=== PATIENT | female | born 1970 | race Caucasian/White ===

== ENCOUNTER 2022-10-01 11:59 | Observation (INO) ==
[2022-10-01] MEDS ORDERED: IOPAMIDOL 100 ML BOTTLE IV ONE (12:00)
[2022-10-01] MEDS ORDERED: ONDANSETRON 4 MG/2 ML VIAL IV ONE ×4 (12:48→18:27)
[2022-10-01] MEDS ORDERED: ONDANSETRON 4 MG/2 ML VIAL ONE (12:51)
[2022-10-01] MEDS ORDERED: LORazepam 2 MG/ML VIAL IV ONE (12:52)
--- NOTE | 2022-10-01 12:52 | Emergency Department Note ---
HPI General Chief complaint: Nausea/Vomiting/Diarrhea Stated complaint: flu Time Seen by Provider: 10/01/22 12:48 Source: patient Mode of arrival: wheelchair Limitations: no limitations History of Present Illness HPI Narrative: Narrative:This 52-year-old female presents with her who states that she has had approximately 24 hours of vomiting. He states "many" when asked how many times she has vomited. He denies seeing any hematemesis, and shes had one diarrhea stool. Patient has a past medical history of esophageal strictures, migraines, complex regional pain syndrome, common bile duct stricture, and is s/p cholecystectomy and DEBBIE. Her states that she "has no immune system". Related Data Home Medications Medication Instructions Recorded Confirmed lorazepam 1 mg tablet 1 mg PO QID anxiety 01/24/20 08/28/22 acyclovir 400 mg tablet 400 mg PO QDAY PRN 04/30/22 08/28/22 paroxetine HCl 40 mg tablet 40 mg PO QDAY 08/28/22 08/28/22 zolpidem 10 mg tablet 10 mg PO HS 08/28/22 08/28/22 Previous Rx's Medication Instructions Recorded febuxostat 80 mg tablet (Uloric) 80 mg PO QDAY #90 tabs 08/05/21 naloxone 4 mg/actuation nasal 4 mg intranasal Q2M PRN opioid 11/06/21 spray (Narcan) overdose #2 ea Magic Mouthwash 5 ml PO .q 4 hrs #180 mL 01/30/22 dicyclomine 10 mg capsule 10 mg PO TID IBS #90 caps 06/27/22 levocetirizine 5 mg tablet (Xyzal) 5 mg PO QPM PRN allergy symptoms 07/07/22 #30 tabs omeprazole 20 mg capsule,delayed 20 mg PO BID #60 caps 07/09/22 release ondansetron HCl 4 mg tablet See Rx Instructions PO .COMPLEX 07/09/22 Nausea/Vomiting #14 tabs azithromycin 250 mg tablet See Rx Instructions PO .COMPLEX #6 08/05/22 tabs tizanidine 4 mg tablet (Zanaflex) 4 mg PO QID #120 tabs 08/11/22 spironolactone 25 mg tablet See Rx Instructions .Route 08/22/22 .COMPLEX #60 tabs amoxicillin-potassium clavulanate 1 tab PO BID #20 tabs 08/25/22 1,000 mg-62.5 mg tablet,ext.rel 12hr (Augmentin XR) clonidine HCl 0.1 mg tablet See Rx Instructions .Route 08/28/22 .COMPLEX #90 tabs fentanyl 50 mcg/hr transdermal 1 patch transdermal Q48H #15 08/28/22 patch patches hydrocodone 10 mg-acetaminophen 1 tab PO Q4H PRN pain #180 tabs 08/28/22 325 mg tablet Allergies Allergy/AdvReac Type Severity Reaction Status Date / Time Isometheptene [From Midrin] Allergy Severe Hives Verified 10/01/22 12:06 promethazine [From PHENERGAN] Allergy Severe CRAWL OUT Verified 10/01/22 12:06 OF SKIN Sulfa (Sulfonamide Allergy Severe HIVES Verified 10/01/22 12:06 Antibiotics) [SULFA (SULFONAMIDE ANTIBIOTICS)] dichloralphenazone Allergy Mild Hives Verified 10/01/22 12:06 [From Midrin] chlorpromazine Allergy Unknown Palpitation Verified 10/01/22 12:06 [From Thorazine] s diphenhydramine Allergy Unknown Other Verified 10/01/22 12:06 haloperidol [From Haldol] Allergy Unknown involuntary Verified 10/01/22 12:06 muscle movements hydroxyzine Allergy Unknown unknown Verified 10/01/22 12:06 quetiapine [From Seroquel] Allergy Unknown Vomiting Verified 10/01/22 12:06 sumatriptan [From IMITREX] Allergy Unknown CRAWL OUT Verified 10/01/22 12:06 OF SKIN sulfa Allergy Unknown Rash Uncoded 08/28/22 14:40 Review of Systems ROS ROS Narrative: Narrative: PFSH Narrative Patient History Narrative: Narrative: Medical/Surgical/Family History All Active Problems (Updated 10/01/22 @ 16:55 by Nicolas Cunningham MD) Acute appendicitis (Acute) Irritable bowel syndrome (Acute) Pharyngitis (Acute) Occipital neuralgia (Chronic) Anxiety (Acute) Insomnia (Acute) Urinary bladder incontinence (Acute) Myofascial pain (Chronic) URI (upper respiratory infection) (Acute) Bronchitis (Acute) CRPS (complex regional pain syndrome type I) (Chronic) Esophageal stricture (Chronic) Complex regional pain syndrome i of right upper limb (Chronic) Radiculopathy, cervical region (Chronic) Right arm pain (Chronic) Cervicalgia (Chronic) Bronchitis (Chronic) Degenerative disc disease (Chronic) Sleep disorder (Chronic) Panic disorder (Chronic) History of MRSA infection (Chronic ~08/26/07) Radiculopathy, lumbosacral region (Chronic) Complex regional pain syndrome type 2 of left lower extremity (Chronic) CRPS (complex regional pain syndrome) type I of lower limb (Chronic) Radiculopathy, lumbar region (Chronic) Common bile duct stricture (Chronic) Breast nodule (Chronic) Hypertension (Chronic) Constipation, chronic (Chronic) Neoplasm of uncertain behavior of skin (Chronic) Obstructive sleep apnea (Chronic) PTSD (post-traumatic stress disorder) (Chronic) Anxiety disorder (Chronic) UTI (urinary tract infection) (Chronic) Menopausal and postmenopausal disorder (Chronic) Gout (Chronic) Encounter for long-term use of opiate analgesic (Chronic) Lytic lesion of bone on x-ray (Chronic) Knightsen light chain disease (Chronic) Viral URI (Chronic) Spindle cell sarcoma (Chronic) Bronchitis, acute, with bronchospasm (Chronic 12/28/14) Night terrors (Chronic) Decrease in appetite (Chronic) Decreased libido without sexual dysfunction (Chronic) Upper respiratory infection (Chronic) Syncope (Chronic) Cough (Chronic) Depression (Chronic) Diarrhea (Chronic) Dysphonia (Chronic) LFT elevation (Chronic) Epistaxis (Chronic) Anxiety (Chronic) Esophageal reflux (Chronic) Fatigue (Chronic) Gastritis and gastroduodenitis (Chronic) Palpitations (Chronic 07/24/08) Tachycardia (Chronic) Nausea (Chronic) Abdominal pain (Chronic) Bile duct stricture (Chronic) Postprocedural hematoma (Chronic) Vaginal candidiasis (Chronic) Atopic dermatitis (Chronic) Antibiotic-associated diarrhea (Chronic) Infection following a procedure, subsequent encounter (Chronic) Traumatic secondary and recurrent hemorrhage (Chronic) Seroma (Chronic 06/15/13) Back pain (Chronic) Other dorsalgia (Chronic 12/30/13) Chronic insomnia (Chronic) History of abdominoplasty (Chronic 06/20/16) 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) Chronic pain (Chronic) Dry eyes (Chronic) Weight gain (Chronic) RUQ pain (Chronic 06/07/14) Flushing (Chronic 10/15/11) Joint pain (Chronic 09/25/14) Heat intolerance (Chronic 03/03/11) Cold intolerance (Chronic) Hx of cholecystectomy (Chronic 06/15/14) History of total abdominal hysterectomy (Chronic ~1996) Positive FRANCES (antinuclear antibody) (Chronic 08/26/07) Abnormal immunological finding in serum (Chronic) Polyarthralgia (Chronic) Fibromyalgia (Chronic 09/09/04) Encounter for wound care of surgical pin site (Chronic) Medical History Abdominal pain Abnormal immunological finding in serum Antibiotic-associated diarrhea Anxiety Anxiety Anxiety disorder Atopic dermatitis Back pain Bile duct stricture Breast nodule Bronchitis Bronchitis, acute, with bronchospasm (12/28/14) Cervicalgia Chronic insomnia Chronic pain CMV (cytomegalovirus infection) Cold intolerance Common bile duct stricture Complex regional pain syndrome i of right upper limb Complex regional pain syndrome type 2 of left lower extremity Constipation, chronic Cough CRPS (complex regional pain syndrome type I) Left lower limb CRPS (complex regional pain syndrome) type I of lower limb Decrease in appetite Decreased libido without sexual dysfunction Degenerative disc disease Depression Diarrhea Dry eyes Dysphonia (02/23/15-Ovi) Encounter for long-term use of opiate analgesic Encounter for wound care of surgical pin site Epistaxis Rekha-Jose infection Esophageal reflux 10/09/2014-[place] Esophageal stricture Fatigue Fibromyalgia (09/09/04) Flushing (10/15/11) Gastritis and gastroduodenitis 10/09/2014-[place] Gout Heat intolerance (03/03/11) History of MRSA infection (~08/26/07) Hypertension Infection following a procedure, subsequent encounter Insomnia Joint pain (09/25/14) Knightsen light chain disease LFT elevation Lytic lesion of bone on x-ray Menopausal and postmenopausal disorder Myofascial pain Nausea Neoplasm of uncertain behavior of skin of lower leg Night terrors Obstructive sleep apnea Occipital neuralgia Other dorsalgia (12/30/13) Palpitations (07/24/08) Panic disorder Polyarthralgia Postprocedural hematoma PTSD (post-traumatic stress disorder) Radiculopathy, cervical region Radiculopathy, lumbar region Radiculopathy, lumbosacral region Right arm pain RUQ pain (06/07/14) Seroma (06/15/13) Sleep disorder none restorative sleep pattern Spindle cell sarcoma Syncope Tachycardia Traumatic secondary and recurrent hemorrhage Upper respiratory infection UTI (urinary tract infection) Vaginal candidiasis Viral URI Weight gain Surgical History History of abdominoplasty (06/20/16) In [place] History of surgery 10/05 [facility] Permanent w/ sed 10/01/201809/05 [facility] Trial w/sed 08/24/201806/05 Lumbar Sympathetic Block Lt L2, L3 w/sed 06/03/1805/05 Lumbar Sympathetic Block L2, L3, left w/sed 04/27/201804/05 Lumbar Sympathetic Block, L2 & L3, left w/sed 04/12/201810/04 Sympathetic Block L2, L3 w/sed 10/08/1710/04 Lumbar Sympathetic Block, L2 and L3 w/sed 09/29/201709/04 Lumbar Sympathetic Block, L2 and L3 Left w/sed 09/02/201703/04 Lumbar Sympathetic Block, L2 and L3 Left w/sed 03/04/201710/03 Lumbar Sympathetic Block, L2, L3 left w/sed 10/01/201610/03 Lumbar Sympathetic Block, Left L2, L3 w/sed 09/23/201609/03 Lumbar Sympathetic Block, L2, L3 left w/sed 09/15/201608/01 TF STACIE #1 Bilat L4-5 w/sed 07/26/201407/31 LESI #1 L5-S1 w/sed 07/19/201309/28 Endoscopic Discectomy, L4-5 w/sed 10-15-1103/29 No Procedure-started SED preauth process 03/19/1103/29 NOTE: PT HAD SEVERE PANIC ATTACK WITH LAST STEROID INJECTION- WOULD NOT RECOMMEND USING AGAIN 03/19/1102/26 TF STACIE #1 Left L5-S1 w/sed (03-03-11) 02/23 TF STACIE #2, Left, L4-5 (no sed) 01/24 LESI #1, L4-5 (no sed) 06/25 Endoscopic Discectomy, L4-5 03/24 SCS Trial, ANS History of total abdominal hysterectomy (~1996) Hx of cholecystectomy (06/15/14) Positive FRANCES (antinuclear antibody) (08/26/07) Family History Family/Other Cervical cancer Grandmother Breast cancer Grandfather Arthritis Heart disease Hypertension Seizures Mother Breast cancer Grandmother Lung cancer Social History Smoking Status: Never smoker Alcohol Intake Frequency: does not drink Substance Use: does not use Exam Narrative Narrative: Narrative:Gen: violently heaving emesis; Skin well perfused, and hydrated without exanthem. Lungs: CTA, equal bilaterally. CV: RRR without murmurs clicks, rubs or gallops. Abd: no bowel sounds. Tender in the RUQ, wo distention rigidity, rebound, CVA or psoas tenderness. General Limitations: no limitations Course Vital Signs Vital signs: Vital Signs Temperature 99.2 F H 10/01/22 12:02 Pulse Rate 116 H 10/01/22 12:02 Respiratory Rate 20 10/01/22 12:02 Pulse Oximetry (%) 97 10/01/22 12:02 Oxygen Delivery Method 10/01/22 12:02 Temperature 99.2 F H 10/01/22 12:02 Pulse Rate 116 H 10/01/22 12:02 Respiratory Rate 20 10/01/22 12:02 Pulse Oximetry (%) 97 10/01/22 12:02 Oxygen Delivery Method 10/01/22 12:02 [facility] MDM Narrative Medical decision making narrative: Narrative:Patient continued to have nausea and pain after initially having resolution with fentanyl and Zofran. She has a white count of 17,000 with a lactic acid of 6.4 her alk phos is elevated somewhat as well as her SGPT and her SGOT with a normal lipase. pt's repeat exam showed her tenderness to be lower than initially. Shes now tender in the RLQ. CT scan showed: The lung bases are clear. No effusions. The visualized heart is grossly normal. Abdominal images show the gallbladder is surgically absent. Mild dilatation intrahepatic common hepatic and common bile duct is stable. Common bile duct is 9 mm. Vague intraluminal density in the ampullary region may indicate polyp or noncalcified stone. No change from prior exam. Mild fatty change within the liver, but no focal hepatic lesion. Marked atrophy and parenchymal fat replacement of the pancreatic head, neck and proximal body continues to progress. There is no focal pancreatic lesion. Both kidneys, adrenal glands, spleen and aorta, including aortic branches, are normal in size, configuration and attenuation without focal lesion. There is no free air, free fluid or adenopathy Pelvic images show hysterectomy changes. A 2.1 cm simple cyst in the retained left ovary is stable. Right ovary not identified and may be surgically absent.. Urinary bladder is normal. Few sigmoid diverticula appreciated. The remaining large bowel small bowel and stomach are grossly normal The retrocecal appendix is mildly dilated (8 mm) with mild wall thickening and wispy inflammation in the periappendiceal fat. This is a change from the 2019 comparison study. No osseous abnormality. IMPRESSION: Simple appendicitis. Retrocecal appendix. Marked atrophy of the pancreatic head, neck and proximal body. Please correlate with malabsorption syndromes: Chronic diarrhea, weight loss etc. Mild dilatation intrahepatic and common bile ducts likely related to post cholecystectomy state. No significant change since 20 Patient will be admitted and placed on Zosyn and Flagyl. With the additional information from the CT, surgical consult is pending Sepsis Sepsis Identified: No Lab Data Result diagrams: 10/01/22 13:02 10/01/22 13:02 Labs: Lab Results 10/01/22 10/01/22 10/01/22 Range/Units 13:02 13:02 13:10 WBC 17.2 H (4.5-11.0) K/mcL RBC 5.01 (3.59-5.38) M/mcL Hgb 14.8 (11.2-15.7) g/dL Hct 43.9 (34.1-44.9) % POC Hct 47.0 (36-48) MCV 87.6 (80.0-100.0) fL MCH 29.5 (26.0-34.0) pg MCHC 33.7 (31.0-36.0) g/dL RDW 12.0 (11.5-14.5) % Plt Count 552 H (140-440) K/mcL MPV 11.2 (8.8-12.5) fL Immature Gran % (Auto) 0.5 (0.0-0.5) % Neut % (Auto) 88.3 H (38.0-78.0) % Lymph % (Auto) 7.1 L (15.5-49.0) % Candler % (Auto) 3.8 (1.0-12.0) % Eos % (Auto) 0 (0.0-7.0) % Baso % (Auto) 0.3 (0.0-2.0) % Lymph # (Auto) 1.22 L (1.50-4.80) K/mcL Candler # (Auto) 0.66 (0.10-0.90) K/mcL Eos # (Auto) 0 (0.00-0.70) K/mcL Baso # (Auto) 0.05 (0.00-0.30) K/mcL Immature Gran # 0.09 H (0.00-0.05) K/mcl Absolute Neutrophils 15.15 H (1.80-8.00) K/mcL VBG Lactic Acid 6.4 H* (0.5-2.0) mmol/L POC Sodium 145 (133-145) Sodium 145 (133-145) mmol/L POC Potassium 3.3 (3.3-5.1) Potassium 3.2 L (3.3-5.1) mmol/L POC Chloride 106 (96-108) Chloride 101 (96-108) mmol/L Carbon Dioxide 22 (22-30) mmol/L POC Total CO2 21.0 L (22-30) Anion Gap 22.0 H (8.0-16.0) POC BUN 9 (6-20) BUN 9 (6-20) mg/dL Creatinine 1.0 (0.6-1.1) mg/dL POC Creatinine 0.7 (0.6-1.2) GFR Calculation 64 Glucose 166 H (70-105) mg/dL POC Glucose 169 H (70-105) Calcium 10.2 (8.6-10.4) mg/dL POC WB Ioniz Calcium 1.10 L (1.16-1.32) Total Bilirubin 0.7 (0.1-1.0) mg/dL AST 51 H (<32) U/L ALT 59 H (<40) U/L Alkaline Phosphatase 152 H (39-117) U/L Total Protein 8.5 H (5.9-8.4) gm/dL Albumin 5.1 (3.2-5.2) gm/dL Globulin 3.4 (2.2-3.7) gm/dL Albumin/Globulin Ratio 1.5 (1.0-2.3) Amylase 64 (28-100) U/L Lipase 10 (7-60) U/L 10/01/22 Range/Units 15:47 WBC (4.5-11.0) K/mcL RBC (3.59-5.38) M/mcL Hgb (11.2-15.7) g/dL Hct (34.1-44.9) % POC Hct (36-48) MCV (80.0-100.0) fL MCH (26.0-34.0) pg MCHC (31.0-36.0) g/dL RDW (11.5-14.5) % Plt Count (140-440) K/mcL MPV (8.8-12.5) fL Immature Gran % (Auto) (0.0-0.5) % Neut % (Auto) (38.0-78.0) % Lymph % (Auto) (15.5-49.0) % Candler % (Auto) (1.0-12.0) % Eos % (Auto) (0.0-7.0) % Baso % (Auto) (0.0-2.0) % Lymph # (Auto) (1.50-4.80) K/mcL Candler # (Auto) (0.10-0.90) K/mcL Eos # (Auto) (0.00-0.70) K/mcL Baso # (Auto) (0.00-0.30) K/mcL Immature Gran # (0.00-0.05) K/mcl Absolute Neutrophils (1.80-8.00) K/mcL VBG Lactic Acid (0.5-2.0) mmol/L POC Sodium (133-145) Sodium (133-145) mmol/L POC Potassium (3.3-5.1) Potassium (3.3-5.1) mmol/L POC Chloride (96-108) Chloride (96-108) mmol/L Carbon Dioxide (22-30) mmol/L POC Total CO2 (22-30) Anion Gap (8.0-16.0) POC BUN (6-20) BUN (6-20) mg/dL Creatinine (0.6-1.1) mg/dL POC Creatinine (0.6-1.2) GFR Calculation Glucose (70-105) mg/dL POC Glucose (70-105) Calcium (8.6-10.4) mg/dL POC WB Ioniz Calcium (1.16-1.32) Total Bilirubin (0.1-1.0) mg/dL AST (<32) U/L ALT (<40) U/L Alkaline Phosphatase (39-117) U/L Total Protein (5.9-8.4) gm/dL Albumin (3.2-5.2) gm/dL Globulin (2.2-3.7) gm/dL Albumin/Globulin Ratio (1.0-2.3) Amylase (28-100) U/L Lipase 9 (7-60) U/L ED POC Tests ED POC Tests: DEN - Influenza A Negative DEN - Influenza B Negative DEN - SARS Antigen Negative Discharge Plan Patient/Caregiver Discharge Instructions Pt seen by [employer] E[employer]OR/PA only: No Clinical Impression: Acute appendicitis Patient Disposition: [facility] Follow up with: Tong Ames MD [Primary Care Provider] - Prescriptions: No Action febuxostat [Uloric] 80 mg tablet 80 mg PO QDAY Qty: 90 4RF Rx Instructions: 1 po qday levocetirizine [Xyzal] 5 mg tablet 5 mg PO QPM PRN (Reason: allergy symptoms) Qty: 30 5RF tizanidine [Zanaflex] 4 mg tablet 4 mg PO QID MDD 4 Qty: 120 2RF spironolactone 25 mg tablet See Rx Instructions .ROUTE .COMPLEX Qty: 60 3RF Dose Instruction: TAKE 1 TABLET BY MOUTH TWICE DAILY Rx Instructions: TAKE 1 TABLET BY MOUTH TWICE DAILY amoxicillin-pot clavulanate [Augmentin XR] 1,000-62.5 mg tablet extended release 12 hr 1 tab PO BID Qty: 20 1RF clonidine HCl 0.1 mg tablet See Rx Instructions .ROUTE .COMPLEX Qty: 90 0RF Dose Instruction: TAKE 1 TABLET BY MOUTH THREE TIMES DAILY. MAXIMUM DAILY DOSE IS: 3 Rx Instructions: TAKE 1 TABLET BY MOUTH THREE TIMES DAILY. MAXIMUM DAILY DOSE IS: 3 fentanyl 50 mcg/hr patch 72 hour 1 patch TRANSDERMA Q48H Qty: 15 0RF Rx Instructions: *MUST LAST 30 DAYS* P/U 11/02, Start 11/03 hydrocodone-acetaminophen 10-325 mg tablet 1 tab PO Q4H MDD 6 PRN (Reason: pain) Qty: 180 0RF Rx Instructions: *MUST LAST 30 DAYS* P/U 11/02, Start 11/03 lorazepam 1 mg tablet 1 mg PO QID Rx Instructions: 1 po QID Narcan 4 mg/actuation spray,non-aerosol 4 mg INTRANASAL Q2M PRN (Reason: opioid overdose) Qty: 2 0RF Rx Instructions: Administer in nostril in the event of suspected overdose and call EMS zolpidem 10 mg tablet 10 mg PO HS paroxetine HCl 40 mg tablet 40 mg PO QDAY acyclovir 400 mg tablet 400 mg PO QDAY PRN Rx Instructions: 1 po BID dicyclomine 10 mg capsule 10 mg PO TID Qty: 90 0RF ondansetron HCl 4 mg tablet See Rx Instructions PO .COMPLEX Qty: 14 3RF Rx Instructions: unknown PO unknown; omeprazole 20 mg capsule,delayed release(DR/EC) 20 mg PO BID Qty: 60 6RF Rx Instructions: swallow whole (do not chew/crush/cut) OR open capsule, sprinkle contents over tablespoonful applesauce; swallow all immediately/do not chew pellets Magic Mouthwash 5 ml PO .q 4 hrs Qty: 180 0RF Rx Instructions: 60cc Lidocaine, 60cc Benadryl Elixir, 60cc Mylanta ~ 5cc Swish & Swallow Q 4hrs PRN azithromycin 250 mg tablet See Rx Instructions PO .COMPLEX Qty: 6 1RF Rx Instructions: For 250 mg dose pack: take 500 mg today (day 1), then 250 mg for 4 days (days 2-5) PO
[2022-10-01] MEDS: 0.9 % SODIUM CHLORIDE 1,000 ML IV ONE ×2 (13:08→13:22)
[2022-10-01 13:14] LABS: POC Calcium, Ionized 1.1 (1.16-1.32); POC Creatinine 0.7 (0.6-1.2); POC Potassium 3.3 (3.3-5.1)
[2022-10-01 13:52] LABS: Basophils # (Auto) 0.05 K/mcL (0.00-0.30); Basophils % (Auto) 0.3 % (0.0-2.0); Eosinophils # (Auto) 0 K/mcL (0.00-0.70); Eosinophils % (Auto) 0 % (0.0-7.0); Hematocrit 43.9 % (34.1-44.9); Hemoglobin 14.8 g/dL (11.2-15.7); Lymphocytes # (Auto) 1.22 K/mcL (1.50-4.80); Lymphocytes % (Auto) 7.1 % (15.5-49.0); Mean Cell Volume 87.6 fL (80.0-100.0); Mean Corpuscular HGB Conc 33.7 g/dL (31.0-36.0); Mean Platelet Volume 11.2 fL (8.8-12.5); Monocytes # (Auto) 0.66 K/mcL (0.10-0.90); Monocytes % (Auto) 3.8 % (1.0-12.0); Neutrophils % (Auto) 88.3 % (38.0-78.0); Platelet Count 552 K/mcL (140-440); RBC 5.01 M/mcL (3.59-5.38); WBC 17.2 K/mcL (4.5-11.0)
[2022-10-01 14:05] LABS: ALT/SGPT 59 U/L (<40); AST/SGOT 51 U/L (<32); Albumin 5.1 gm/dL (3.2-5.2); Albumin/Globulin Ratio 1.5 (1.0-2.3); Alkaline Phosphatase 152 U/L (39-117); Amylase 64 U/L (28-100); Bilirubin,Total 0.7 mg/dL (0.1-1.0); Blood Urea Nitrogen 9 mg/dL (6-20); Calcium 10.2 mg/dL (8.6-10.4); Carbon Dioxide 22 mmol/L (22-30); Chloride 101 mmol/L (96-108); Globulin 3.4 gm/dL (2.2-3.7); Glomerular Filtration Rate 64; Glucose 166 mg/dL (70-105)
[2022-10-01] MEDS ORDERED: 0.9 % SODIUM CHLORIDE 1,000 ML IV ONE (14:58)
[2022-10-01] MEDS ORDERED: metroNIDAZOLE 500 MG/100 ML BAG IV ONE (14:58)
[2022-10-01] MEDS ORDERED: PIPERACILLIN SODIUM/TAZOBACTAM 3.375 GM in DEXTROSE 5% IN WATER 50 ML IV ONE (14:58)
[2022-10-01] MEDS ORDERED: fentaNYL 100 MCG/2 ML VIAL IV ONE ×2 (15:07→18:27)
--- NOTE | 2022-10-01 16:24 | Cat Scan Report ---
CLINICAL INFORMATION: Abdominal pain and vomiting COMPARISON: Abdomen and pelvic CT 02/08/2017 TECHNIQUE: Following enteric contrast, 80 cc of Isovue-370 were injected intravenously, and 60 seconds later, 0.625 mm helical slices were obtained from the mid heart through the subtrochanteric regions. Following reconstruction, 2.5 mm sagittal, coronal and axial reformatted images were processed and reviewed at bone, lung and soft tissue windows. Five minutes later, 0.625 mm helical slices were obtained from the mid heart through the kidneys and viewed at soft tissue windows.The exam was performed using radiation dose optimization techniques including, but not limited to, automated exposure control, adjustment of the mA and/or kV according to patient size and use of iterative reconstruction technique. FINDINGS: The lung bases are clear. No effusions. The visualized heart is grossly normal. Abdominal images show the gallbladder is surgically absent. Mild dilatation intrahepatic common hepatic and common bile duct is stable. Common bile duct is 9 mm. Vague intraluminal density in the ampullary region may indicate polyp or noncalcified stone. No change from prior exam. Mild fatty change within the liver, but no focal hepatic lesion. Marked atrophy and parenchymal fat replacement of the pancreatic head, neck and proximal body continues to progress. There is no focal pancreatic lesion. Both kidneys, adrenal glands, spleen and aorta, including aortic branches, are normal in size, configuration and attenuation without focal lesion. There is no free air, free fluid or adenopathy Pelvic images show hysterectomy changes. A 2.1 cm simple cyst in the retained left ovary is stable. Right ovary not identified and may be surgically absent.. Urinary bladder is normal. Few sigmoid diverticula appreciated. The remaining large bowel small bowel and stomach are grossly normal The retrocecal appendix is mildly dilated (8 mm) with mild wall thickening and wispy inflammation in the periappendiceal fat. This is a change from the 2019 comparison study. No osseous abnormality. IMPRESSION: Simple appendicitis. Retrocecal appendix. Marked atrophy of the pancreatic head, neck and proximal body. Please correlate with malabsorption syndromes: Chronic diarrhea, weight loss etc. Mild dilatation intrahepatic and common bile ducts likely related to post cholecystectomy state. No significant change since 2017 Interpreted and Authenticated by: Mateo Capellan 10/01/22
[2022-10-01 17:36] LABS: Appearance,Urine HAZY (Clear); Bilirubin,Urine Negative (Negative); Color,Urine YELLOW; Culture Indicated,Urine No; Glucose,Urine (UA) Negative (Negative); Ketones,Urine 20 mg/dL (Negative); Leukocyte Esterase,Urine Negative /uL (Negative); Mucus,Urine MANY /hpf; Nitrate,Urine Negative (Negative); Protein,Urine 30 mg/dL (Negative); Specific Gravity,Urine 1.018 (1.000-1.035); Urine Blood Negative (Negative); Urine Hyaline Cast 4 /lph (0-2); Urine RBC < 1 /hpf (0-3); Urine Squamous Epithelial Cell < 1 /hpf (0-4); Urine WBC 5 /hpf (0-4); Urobilinogen,Urine Negative
[2022-10-01] MEDS ORDERED: metroNIDAZOLE 500 MG/100 ML BAG IV SCH (19:15)
--- NOTE | 2022-10-01 19:37 | General Surgery Consult Note ---
HPI Date of Consult Consult Date: 10/01/22 Requesting physician: Julio Cesar Arechiga Primary Care Provider: Tong Ames MD Consult Narrative Chief complaint: Abdominal Pain Reason for consult: Acute Appendicitis History of present illness: Allison is seen in consultation today after presenting to the ER with a roughly 48 hour history of intense Nausea and Vomiting along with some abdominal pain that began the night before last but really became quite intense yesterday and has only worsened since. A CT Scan was obtained demonstrating what has appeared to be appendicitis without evidence of perforation, abscess or necrosis. She has had a prior Cholecystectomy many years ago along with a DEBBIE/BSO. She has what she describes as severe chronic pain issues going back many years and is on chronic home pain meds along with use of an implantable stimulator. She uses a Fentanyl patch and is on oral Hydrocodone. She also suffers from PTSD and has severe anxiety issues. cc:: CC: [facility] All Active Problems (Updated 10/01/22 @ 16:55 by Nicolas Cunningham MD) Acute appendicitis (Acute) Irritable bowel syndrome (Acute) Pharyngitis (Acute) Occipital neuralgia (Chronic) Anxiety (Acute) Insomnia (Acute) Urinary bladder incontinence (Acute) Myofascial pain (Chronic) URI (upper respiratory infection) (Acute) Bronchitis (Acute) CRPS (complex regional pain syndrome type I) (Chronic) Esophageal stricture (Chronic) Complex regional pain syndrome i of right upper limb (Chronic) Radiculopathy, cervical region (Chronic) Right arm pain (Chronic) Cervicalgia (Chronic) Bronchitis (Chronic) Degenerative disc disease (Chronic) Sleep disorder (Chronic) Panic disorder (Chronic) History of MRSA infection (Chronic ~08/26/07) Radiculopathy, lumbosacral region (Chronic) Complex regional pain syndrome type 2 of left lower extremity (Chronic) CRPS (complex regional pain syndrome) type I of lower limb (Chronic) Radiculopathy, lumbar region (Chronic) Common bile duct stricture (Chronic) Breast nodule (Chronic) Hypertension (Chronic) Constipation, chronic (Chronic) Neoplasm of uncertain behavior of skin (Chronic) Obstructive sleep apnea (Chronic) PTSD (post-traumatic stress disorder) (Chronic) Anxiety disorder (Chronic) UTI (urinary tract infection) (Chronic) Menopausal and postmenopausal disorder (Chronic) Gout (Chronic) Encounter for long-term use of opiate analgesic (Chronic) Lytic lesion of bone on x-ray (Chronic) Oran light chain disease (Chronic) Viral URI (Chronic) Spindle cell sarcoma (Chronic) Bronchitis, acute, with bronchospasm (Chronic 12/28/14) Night terrors (Chronic) Decrease in appetite (Chronic) Decreased libido without sexual dysfunction (Chronic) Upper respiratory infection (Chronic) Syncope (Chronic) Cough (Chronic) Depression (Chronic) Diarrhea (Chronic) Dysphonia (Chronic) LFT elevation (Chronic) Epistaxis (Chronic) Anxiety (Chronic) Esophageal reflux (Chronic) Fatigue (Chronic) Gastritis and gastroduodenitis (Chronic) Palpitations (Chronic 07/24/08) Tachycardia (Chronic) Nausea (Chronic) Abdominal pain (Chronic) Bile duct stricture (Chronic) Postprocedural hematoma (Chronic) Vaginal candidiasis (Chronic) Atopic dermatitis (Chronic) Antibiotic-associated diarrhea (Chronic) Infection following a procedure, subsequent encounter (Chronic) Traumatic secondary and recurrent hemorrhage (Chronic) Seroma (Chronic 06/15/13) Back pain (Chronic) Other dorsalgia (Chronic 12/30/13) Chronic insomnia (Chronic) History of abdominoplasty (Chronic 06/20/16) 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) Chronic pain (Chronic) Dry eyes (Chronic) Weight gain (Chronic) RUQ pain (Chronic 06/07/14) Flushing (Chronic 10/15/11) Joint pain (Chronic 09/25/14) Heat intolerance (Chronic 03/03/11) Cold intolerance (Chronic) Hx of cholecystectomy (Chronic 06/15/14) History of total abdominal hysterectomy (Chronic ~1996) Positive FRANCES (antinuclear antibody) (Chronic 08/26/07) Abnormal immunological finding in serum (Chronic) Polyarthralgia (Chronic) Fibromyalgia (Chronic 09/09/04) Encounter for wound care of surgical pin site (Chronic) Medical History Abdominal pain Abnormal immunological finding in serum Antibiotic-associated diarrhea Anxiety Anxiety Anxiety disorder Atopic dermatitis Back pain Bile duct stricture Breast nodule Bronchitis Bronchitis, acute, with bronchospasm (12/28/14) Cervicalgia Chronic insomnia Chronic pain CMV (cytomegalovirus infection) Cold intolerance Common bile duct stricture Complex regional pain syndrome i of right upper limb Complex regional pain syndrome type 2 of left lower extremity Constipation, chronic Cough CRPS (complex regional pain syndrome type I) Left lower limb CRPS (complex regional pain syndrome) type I of lower limb Decrease in appetite Decreased libido without sexual dysfunction Degenerative disc disease Depression Diarrhea Dry eyes Dysphonia (02/23/15-Ovi) Encounter for long-term use of opiate analgesic Encounter for wound care of surgical pin site Epistaxis Rekha-Jose infection Esophageal reflux 10/09/2014-[place] Esophageal stricture Fatigue Fibromyalgia (09/09/04) Flushing (10/15/11) Gastritis and gastroduodenitis 10/09/2014-[place] Gout Heat intolerance (03/03/11) History of MRSA infection (~08/26/07) Hypertension Infection following a procedure, subsequent encounter Insomnia Joint pain (09/25/14) Oran light chain disease LFT elevation Lytic lesion of bone on x-ray Menopausal and postmenopausal disorder Myofascial pain Nausea Neoplasm of uncertain behavior of skin of lower leg Night terrors Obstructive sleep apnea Occipital neuralgia Other dorsalgia (12/30/13) Palpitations (07/24/08) Panic disorder Polyarthralgia Postprocedural hematoma PTSD (post-traumatic stress disorder) Radiculopathy, cervical region Radiculopathy, lumbar region Radiculopathy, lumbosacral region Right arm pain RUQ pain (06/07/14) Seroma (06/15/13) Sleep disorder none restorative sleep pattern Spindle cell sarcoma Syncope Tachycardia Traumatic secondary and recurrent hemorrhage Upper respiratory infection UTI (urinary tract infection) Vaginal candidiasis Viral URI Weight gain Surgical History History of abdominoplasty (06/20/16) In [place] History of surgery 10/05 [facility] Permanent w/ sed 10/01/201809/05 [facility] Trial w/sed 08/24/201806/05 Lumbar Sympathetic Block Lt L2, L3 w/sed 06/03/1805/05 Lumbar Sympathetic Block L2, L3, left w/sed 04/27/201804/05 Lumbar Sympathetic Block, L2 & L3, left w/sed 04/12/201810/04 Sympathetic Block L2, L3 w/sed 10/08/1710/04 Lumbar Sympathetic Block, L2 and L3 w/sed 09/29/201709/04 Lumbar Sympathetic Block, L2 and L3 Left w/sed 09/02/201703/04 Lumbar Sympathetic Block, L2 and L3 Left w/sed 03/04/201710/03 Lumbar Sympathetic Block, L2, L3 left w/sed 10/01/201610/03 Lumbar Sympathetic Block, Left L2, L3 w/sed 09/23/201609/03 Lumbar Sympathetic Block, L2, L3 left w/sed 09/15/201608/01 TF STACIE #1 Bilat L4-5 w/sed 07/26/201407/31 LESI #1 L5-S1 w/sed 07/19/201309/28 Endoscopic Discectomy, L4-5 w/sed 10-15-1103/29 No Procedure-started SED preauth process 03/19/1103/29 NOTE: PT HAD SEVERE PANIC ATTACK WITH LAST STEROID INJECTION- WOULD NOT RECOMMEND USING AGAIN 03/19/1102/26 TF STACIE #1 Left L5-S1 w/sed (03-03-11) 02/23 TF STACIE #2, Left, L4-5 (no sed) 01/24 LESI #1, L4-5 (no sed) 06/25 Endoscopic Discectomy, L4-5 03/24 SCS Trial, ANS History of total abdominal hysterectomy (~1996) Hx of cholecystectomy (06/15/14) Positive FRANCES (antinuclear antibody) (08/26/07) Family History Family/Other Cervical cancer Grandmother Breast cancer Grandfather Arthritis Heart disease Hypertension Seizures Mother Breast cancer Grandmother Lung cancer Social History household members: spouse housing: house lives independently: Yes marital status: occupational status: unemployed and retired occupation: [employer] 30 years other: [employer] physical activity: none smoking status: Former smoker alcohol intake frequency: does not drink substance use type: does not use seatbelt use: always additional history: Has 1 daughter Max Kate, granddaughters Ansley Alexander and Ravi. MEDS/ALLERGIES Home Medications and Allergies Home Medications Medication Instructions Recorded Confirmed Type lorazepam 1 mg tablet 1 mg PO QID anxiety 01/24/20 10/01/22 History febuxostat 80 mg tablet (Uloric) 80 mg PO QDAY #90 tabs 08/05/21 10/01/22 Rx naloxone 4 mg/actuation nasal 4 mg intranasal Q2M PRN opioid 11/06/21 10/01/22 Rx spray (Narcan) overdose #2 ea acyclovir 400 mg tablet 400 mg PO QDAY PRN Break out 04/30/22 10/01/22 History dicyclomine 10 mg capsule 10 mg PO TID IBS #90 caps 06/27/22 10/01/22 Rx omeprazole 20 mg capsule,delayed 20 mg PO BID #60 caps 07/09/22 10/01/22 Rx release tizanidine 4 mg tablet (Zanaflex) 4 mg PO QID #120 tabs 08/11/22 10/01/22 Rx fentanyl 50 mcg/hr transdermal 1 patch transdermal Q48H #15 08/28/22 10/01/22 Rx patch patches hydrocodone 10 mg-acetaminophen 1 tab PO Q4H PRN pain #180 tabs 08/28/22 10/01/22 Rx 325 mg tablet paroxetine HCl 40 mg tablet 20 mg PO QDAY 08/28/22 10/01/22 History zolpidem 10 mg tablet 10 mg PO HS 08/28/22 10/01/22 History clonidine HCl 0.1 mg tablet 0.1 mg PO BID 10/01/22 10/01/22 History ondansetron HCl 4 mg tablet 4 mg PO Q4-6HP PRN break out 10/01/22 10/01/22 History spironolactone 25 mg tablet 25 mg PO BID 10/01/22 10/01/22 History Allergies Allergy/AdvReac Type Severity Reaction Status Date / Time dichloralphenazone Allergy Mild Hives Verified 10/01/22 12:06 [From Midrin] Isometheptene [From Midrin] Allergy Mild Hives Verified 10/02/22 10:23 Sulfa (Sulfonamide Allergy Mild HIVES Verified 10/02/22 10:23 Antibiotics) [SULFA (SULFONAMIDE ANTIBIOTICS)] hydroxyzine Allergy Unknown unknown Verified 10/01/22 12:06 chlorpromazine AdvReac Intermediate Palpitation Verified 10/02/22 10:23 [From Thorazine] s diphenhydramine AdvReac Intermediate CRAWL OUT Verified 10/02/22 10:23 OF SKIN promethazine [From PHENERGAN] AdvReac Intermediate CRAWL OUT Verified 10/02/22 10:23 OF SKIN sumatriptan [From IMITREX] AdvReac Intermediate CRAWL OUT Verified 10/02/22 10:23 OF SKIN haloperidol [From Haldol] AdvReac Mild involuntary Verified 10/02/22 10:23 muscle movements quetiapine [From Seroquel] AdvReac Mild Vomiting Verified 10/02/22 10:24 sulfa Allergy Mild Rash Uncoded 10/02/22 10:23 Physical Examination Vital Signs Vital signs: Temp Pulse Resp BP Pulse Ox O2 Del Method 100.4 F H 90 20 143/97 97 10/01/22 18:10 10/01/22 18:14 10/01/22 12:02 10/01/22 18:01 10/01/22 18:14 10/01/22 12:02 General physical appearance General physical exam: other (appears emotionally upset) Eyes Eye exam: PERRL; negative icteric Head Head exam IM: Present atraumatic Cardiovascular Cardiovascular exam IM: Present normal rate and rhythm Respiratory Respiratory exam: normal respiratory effort Abdomen Abdomen: Present soft (belly seems soft and non distended, she has some non focal lower abdominal tenderness without peritoneal findings ) Integumentary Integumentary: Present other (normal appearing intact skin ) Neurologic Neurologic: Present normal coordination Psychiatric Psychiatric: Present other (fully oriented and conversant, emotionally upset at times ) Results Labs Result diagrams: 10/02/22 05:12 10/02/22 05:11 Labs: Abnormal lab results 10/01/22 10/01/22 10/01/22 Range/Units 13:02 13:02 13:10 WBC 17.2 H (4.5-11.0) K/mcL Plt Count 552 H (140-440) K/mcL Neut % (Auto) 88.3 H (38.0-78.0) % Lymph % (Auto) 7.1 L (15.5-49.0) % Lymph # (Auto) 1.22 L (1.50-4.80) K/mcL Immature Gran # 0.09 H (0.00-0.05) K/mcl Absolute Neutrophils 15.15 H (1.80-8.00) K/mcL VBG Lactic Acid 6.4 H* (0.5-2.0) mmol/L Potassium 3.2 L (3.3-5.1) mmol/L POC Total CO2 21.0 L (22-30) Anion Gap 22.0 H (8.0-16.0) Glucose 166 H (70-105) mg/dL POC Glucose 169 H (70-105) POC WB Ioniz Calcium 1.10 L (1.16-1.32) AST 51 H (<32) U/L ALT 59 H (<40) U/L Alkaline Phosphatase 152 H (39-117) U/L Total Protein 8.5 H (5.9-8.4) gm/dL Urine Appearance (Clear) Urine Protein (Negative) mg/dL Urine Ketones (Negative) mg/dL Urine WBC (0-4) /hpf Hyaline Casts (0-2) /lph Urine Mucus (None) /hpf 10/01/22 Range/Units 15:55 WBC (4.5-11.0) K/mcL Plt Count (140-440) K/mcL Neut % (Auto) (38.0-78.0) % Lymph % (Auto) (15.5-49.0) % Lymph # (Auto) (1.50-4.80) K/mcL Immature Gran # (0.00-0.05) K/mcl Absolute Neutrophils (1.80-8.00) K/mcL VBG Lactic Acid (0.5-2.0) mmol/L Potassium (3.3-5.1) mmol/L POC Total CO2 (22-30) Anion Gap (8.0-16.0) Glucose (70-105) mg/dL POC Glucose (70-105) POC WB Ioniz Calcium (1.16-1.32) AST (<32) U/L ALT (<40) U/L Alkaline Phosphatase (39-117) U/L Total Protein (5.9-8.4) gm/dL Urine Appearance Hazy A (Clear) Urine Protein 30 A (Negative) mg/dL Urine Ketones 20 A (Negative) mg/dL Urine WBC 5 H (0-4) /hpf Hyaline Casts 4 H (0-2) /lph Urine Mucus Many A (None) /hpf Diabetes panel 10/01/22 Range/Units 13:02 Sodium 145 (133-145) mmol/L Potassium 3.2 L (3.3-5.1) mmol/L Chloride 101 (96-108) mmol/L Carbon Dioxide 22 (22-30) mmol/L BUN 9 (6-20) mg/dL Creatinine 1.0 (0.6-1.1) mg/dL Glucose 166 H (70-105) mg/dL Calcium 10.2 (8.6-10.4) mg/dL AST 51 H (<32) U/L ALT 59 H (<40) U/L Alkaline Phosphatase 152 H (39-117) U/L Total Protein 8.5 H (5.9-8.4) gm/dL Albumin 5.1 (3.2-5.2) gm/dL Calcium panel 10/01/22 Range/Units 13:02 Calcium 10.2 (8.6-10.4) mg/dL Albumin 5.1 (3.2-5.2) gm/dL Pituitary panel 10/01/22 Range/Units 13:02 Sodium 145 (133-145) mmol/L Potassium 3.2 L (3.3-5.1) mmol/L Chloride 101 (96-108) mmol/L Carbon Dioxide 22 (22-30) mmol/L BUN 9 (6-20) mg/dL Creatinine 1.0 (0.6-1.1) mg/dL Glucose 166 H (70-105) mg/dL Calcium 10.2 (8.6-10.4) mg/dL Adrenal panel 10/01/22 Range/Units 13:02 Sodium 145 (133-145) mmol/L Potassium 3.2 L (3.3-5.1) mmol/L Chloride 101 (96-108) mmol/L Carbon Dioxide 22 (22-30) mmol/L BUN 9 (6-20) mg/dL Creatinine 1.0 (0.6-1.1) mg/dL Glucose 166 H (70-105) mg/dL Calcium 10.2 (8.6-10.4) mg/dL Total Bilirubin 0.7 (0.1-1.0) mg/dL AST 51 H (<32) U/L ALT 59 H (<40) U/L Alkaline Phosphatase 152 H (39-117) U/L Total Protein 8.5 H (5.9-8.4) gm/dL Albumin 5.1 (3.2-5.2) gm/dL All other labs normal. A/P Assessment and plan (1) Acute appendicitis: Assessment and plan: Acute Appendicitis along with probable hypovolemia secondary to marginal oral intake and profuse vomiting over the past 36 hours or so Issues are discussed and reviewed at length and surgery is recommended if she wishes. Risks, benefits, potential complications and alternative treatment options of Laparoscopic Appendectomy are all discussed and reviewed at length including the option of non operative mgmt with IV ABs and observational mgmt if she wishes and potential issues related to surgery including possible need for drain placement, conversion to an open procedure, injury to surrounding structures, and numerous other issues as well. She would like to proceed with surgery and we will add her on to the OR schedule in an expedited fashion along with initiating IV ABs, pain control and anti anxiety measures. My contact info is provided to her and I've asked her to call or have family call at any time if questions or concerns arise Status: Acute Time Spent With Patient Time: Total time spent is greater than 50% in coordination of care (as documented) at patient's floor/unit and/or counseling patient:
[2022-10-01] MEDS: LORazepam 2 MG/ML VIAL IV PRN ×2 (20:06→21:48)
[2022-10-01] MEDS: DEXTROSE 5%-LR 1,000 ML IV SCH (21:40)
[2022-10-01] MEDS: ONDANSETRON 4 MG/2 ML VIAL IV PRN (21:45)
[2022-10-01] MEDS: HYDROmorphone 0.5 MG/0.5 ML SYRINGE IV PRN (21:48)
[2022-10-01] MEDS: CIPROFLOXACIN 400 MG/200 ML BAG IV SCH (22:36)
[2022-10-02] MEDS: HYDROmorphone 0.5 MG/0.5 ML SYRINGE IV PRN ×7 (01:32→17:54)
[2022-10-02] MEDS: LORazepam 2 MG/ML VIAL IV PRN ×8 (01:34→22:44)
[2022-10-02] MEDS: ONDANSETRON 4 MG/2 ML VIAL IV PRN ×4 (01:35→19:51)
[2022-10-02] MEDS: DEXTROSE 5%-LR 1,000 ML IV SCH ×4 (01:44→22:44)
[2022-10-02] MEDS: metroNIDAZOLE 500 MG/100 ML BAG IV SCH ×5 (05:42→22:45)
[2022-10-02 06:36] LABS: Hematocrit 36.5 % (34.1-44.9); Hemoglobin 11.8 g/dL (11.2-15.7); Mean Cell Volume 91.3 fL (80.0-100.0); Mean Corpuscular HGB Conc 32.3 g/dL (31.0-36.0); Mean Platelet Volume 10.8 fL (8.8-12.5); Platelet Count 354 K/mcL (140-440); Red Cell Distribution Width 12.4 % (11.5-14.5); WBC 12.9 K/mcL (4.5-11.0)
[2022-10-02 07:08] LABS: Blood Urea Nitrogen 7 mg/dL (6-20); Carbon Dioxide 28 mmol/L (22-30); Chloride 106 mmol/L (96-108); Glomerular Filtration Rate 84; Glucose 110 mg/dL (70-105)
[2022-10-02] MEDS ORDERED: BUPIVACAINE W/EPI 0.5% 50 ML VIAL IJ ONE (09:00)
--- NOTE | 2022-10-02 09:08 | General Surgery Progress Note ---
SUBJECTIVE Subjective Patient information: Note initiated : 10/02/22 at 9:03 am Service Date, if different from initiated Date: [] Patient: Allison Ji 52 y/o F admitted on 10/01/22 for flu. Chief Complaint: [] She continues to have pain perhaps feeling slightly improved. Wishes to go ahead with surgery this am, risks, benefits, potential complications and alternative treatment options, including non operative mgmt, are once again reviewed Constitutional Vitals: Vital Signs Temp Pulse Resp BP Pulse Ox O2 Del Method 98.2 F 95 H 16 149/90 92 10/02/22 07:47 10/02/22 07:47 10/02/22 07:47 10/02/22 07:47 10/02/22 07:47 10/02/22 07:47 Period Temp Pulse Resp BP Sys/Cui Pulse Ox O2 Del Method O2 Flow Rate Last 24 Hr 98.1 F-100.4 F 83-116 16-20 129-184/73-152 92-100 Room Air- Room Air Intake and Output 10/01/22 10/02/22 10/02/22 19:59 03:59 11:59 Intake Total 2150 300 1090 Output Total 200 Balance 2150 300 890 Weight 200 lb 201 lb 4.8 oz Intake & Output: Intake & Output 10/01/22 10/02/22 10/02/22 19:59 03:59 11:59 Intake Total 2150 300 1090 Output Total 200 Balance 2150 300 890 Weight 200 lb 201 lb 4.8 oz Intake: IV 2150 300 1090 Sodium Chloride 0.9% 1,000 ml @ 2000 Wide Open IV BOLUS ONE Rx#: [id number] Dextrose 5%-Lactated Ringers 1, 990 000 ml @ 150 mls/hr IV .[id number] [facility] Rx#:[id number] Zosyn 3.375 gm In Dextrose 5% 50 in Water 50 ml @ 100 mls/hr IV ONCE ONE Rx#:[id number] Oral 0 Output: Void Amount 200 Other: # Voids 1 # Bowel Movements 0 Exam: Non toxic, conversant, some emotional distress Respiratory Respiratory exam: Present normal respiratory exam Cardiovascular Cardiovascular exam: Present RRR GI/Abdominal Additional comments: exam unchanged with soft, non distended, mild largely non focal Right Sided tenderness Extremities Exam Additional comments: appear well perfused A/P Assessment and plan (1) Acute appendicitis: Assessment and plan: Acute Appendicitis To the OR this AM for planned Lap Appendectomy Reviewed at length and questions/concerns addressed and she wishes to proceed Status: Acute Time Spent With Patient Time: Total time spent is greater than 50% in coordination of care (as documented) at patient's floor/unit and/or counseling patient:
[2022-10-02] MEDS ORDERED: LIDOCAINE HCL/PF 100 MG/5 ML SYRINGE IV ONE (09:10)
[2022-10-02] MEDS ORDERED: MAGNESIUM SULFATE 2 GM/50 ML BAG IV ONE (09:10)
[2022-10-02] MEDS ORDERED: PROPOFOL 200 MG/20 ML VIAL IV ONE (09:10)
[2022-10-02] MEDS ORDERED: ONDANSETRON 4 MG/2 ML VIAL ONE (09:10)
[2022-10-02] MEDS ORDERED: HYDROmorphone 1 MG/ML SYRINGE ONE (09:10)
[2022-10-02] MEDS ORDERED: fentaNYL 100 MCG/2 ML VIAL IV ONE (09:10)
[2022-10-02] MEDS ORDERED: SUGAMMADEX SODIUM 200 MG/2 ML VIAL IV ONE (09:10)
[2022-10-02] MEDS ORDERED: KETAMINE 50 MG/ML Syringe (ANEST) IV ONE (09:10)
[2022-10-02] MEDS ORDERED: MIDAZOLAM 5 MG/5 ML VIAL ONE (09:10)
[2022-10-02] MEDS ORDERED: ROCURONIUM 10 MG/ML ML IV ONE (09:10)
[2022-10-02] MEDS ORDERED: DEXAMETHASONE 10 MG/ML VIAL ONE (09:10)
[2022-10-02] MEDS ORDERED: METHOCARBAMOL 1,000 MG/10 ML VIAL IV PRN (10:17)
[2022-10-02] MEDS ORDERED: NALOXONE HCL 0.4 MG/ML VIAL IV PRN (10:17)
[2022-10-02] MEDS ORDERED: ONDANSETRON 4 MG/2 ML VIAL IV PRN (10:17)
[2022-10-02] MEDS ORDERED: ACETAMINOPHEN 1,000 MG/100 ML BAG IV ONE (10:17)
[2022-10-02] MEDS ORDERED: MEPERIDINE 25 MG/ML VIAL IV PRN (10:17)
[2022-10-02] MEDS ORDERED: IPRATROPIUM/ALBUTEROL 3 ML AMPUL.NEB NEB PRN (10:17)
[2022-10-02] MEDS ORDERED: LACTATED RINGERS 250 ML IV PRN (10:17)
[2022-10-02] MEDS ORDERED: DIAZEPAM 10 MG/2 ML SYRINGE IV PRN (10:17)
[2022-10-02] MEDS ORDERED: KETOROLAC 30 MG/ML VIAL IV PRN (10:17)
[2022-10-02] MEDS ORDERED: LACTATED RINGERS 1,000 ML IV SCH (10:30)
--- NOTE | 2022-10-02 10:59 | Brief Operative Note ---
Brief Operative Note Date of procedure: 10/02/22 Pre-op diagnosis: Acute Appendicitis Post-op diagnosis: same Procedure: Laparoscopic Appendectomy Grafts/Implants: No Anesthesia: GETA Findings: Mildly inflamed non gangrenous, non perforated appendix Complications: none Surgeon: Julio Cesar Arechiga Estimated blood loss (cc): 5 Specimens Removed/Pathology: other (appendix ) Condition: stable Disposition: PACU
[2022-10-02] MEDS ORDERED: hydrALAZINE 20 MG/ML VIAL IV ONE (11:12)
[2022-10-02] MEDS: fentaNYL 100 MCG/2 ML VIAL IV PRN ×2 (11:20→11:25)
[2022-10-02] MEDS: CIPROFLOXACIN 400 MG/200 ML BAG IV SCH ×4 (12:21→21:15)
[2022-10-02] MEDS: oxyCODONE HCL 5 MG TABLET PO PRN ×2 (14:49→19:50)
[2022-10-02] MEDS ORDERED: fentaNYL 50 MCG PATCH TOPICAL SCH (18:15)
[2022-10-02] MEDS ORDERED: fentaNYL 50 MCG PATCH ONE (19:33)
[2022-10-03] MEDS: oxyCODONE HCL 5 MG TABLET PO PRN ×5 (00:19→20:05)
[2022-10-03] MEDS: ACETAMINOPHEN 650 MG/65 ML BAG IV SCH ×4 (00:20→22:44)
[2022-10-03] MEDS: LORazepam 2 MG/ML VIAL IV PRN ×4 (01:37→15:17)
[2022-10-03] MEDS: metroNIDAZOLE 500 MG/100 ML BAG IV SCH (05:04)
[2022-10-03] MEDS: ONDANSETRON 4 MG/2 ML VIAL IV PRN (05:05)
--- NOTE | 2022-10-03 07:42 | EKG ---
[facility] Test Date: 2022-10-02 Pat Name: Allison Ji Department: MED[facility] Room: 128 Gender: Female [employer] T[employer]: : 1970 Requested By: Akash Grazon Order Number: [id number] Reading MD: Robbin Vásquez Measurements Intervals [place] Rate: 93 P: 57 TX: 136 QRS: 17 QRSD: 88 T: 52 QT: 349 QTc: 435 Interpretive Statements Sinus rhythm Abnormal inferior Q waves Electronically Signed On 10-03-2022 7:41:29 PST by Robbin Vásquez /store/M0/[id number]
[2022-10-03] MEDS: CIPROFLOXACIN 400 MG/200 ML BAG IV SCH (08:06)
[2022-10-03] MEDS: HYDROmorphone 0.5 MG/0.5 ML SYRINGE IV PRN (08:11)
--- NOTE | 2022-10-03 08:22 | Operative Note ---
DATE OF OPERATION: 10/02/2022 DATE OF PROCEDURE: 10/02/2022 PREOPERATIVE DIAGNOSIS: Acute appendicitis. POSTOPERATIVE DIAGNOSIS: Acute appendicitis. OPERATIVE PROCEDURE: Laparoscopic appendectomy. SURGEON: Julio Cesar Arechiga M.D. ANESTHESIA: General. PREOPERATIVE MEDICATIONS: Cipro 400 mg IV, Flagyl 500 mg IV. INDICATIONS: The patient is a 52-year-old female who presented to the Emergency Room late in the day yesterday with findings consistent with some abdominal symptomatology and malaise. She underwent a CT scan, which demonstrated evidence of inflammatory change in the retrocecal appendix. There was really no other significant abnormality noted. She had copious bouts of vomiting as really her dominant presenting symptom along with abdominal pain. She suffers from chronic pain issues and is on chronic home narcotic supplementation including a fentanyl patch. We saw her in consultation and discussed options with her including a full discussion of risks, benefits, potential complications, and alternative treatment options to laparoscopic appendectomy, including the option to not undergo surgery and be treated with antibiotics alone. The possibility that we could have unexpected findings of her symptoms and they may not be related to her appendix as she was not particularly focal on exam, and other issues as well including but not limited to bleeding, infection, trocar injury, potential for conversion to open, drain placement, injury to surrounding structures and other issues as well as bleeding and other concerns. She gave full informed consent and wished to undergo the procedure. DESCRIPTION OF PROCEDURE: The patient was taken to the OR and placed supine on the OR table, placed under general anesthesia and intubated. Bilateral SCDs were applied. All pressure sensitive areas were carefully padded. Her left arm was tucked at her side. Her right arm was left out on an arm board. The abdomen was then widely prepped and draped in a sterile fashion. Procedure began with accessing the peritoneal cavity utilizing a 0-degree, 5-mm scope through a Visiport in the right upper abdomen. Once peritoneal access was obtained pneumoperitoneum was obtained with high-flow CO2 insufflation. We then examined the area of access to make sure there was no evidence of injury; none was seen. We then placed two remaining additional 5 mm trocars, one was a supraumbilical trocar and then an additional trocar in the left lower abdomen. The peritoneal cavity was surveyed. There were fairly dense adhesions to the central abdomen from a prior total abdominal hysterectomy and we spent some time taking these down in entirely avascular fashion utilizing an endo shear. No cautery was used. No thermal energy was used in the dissection of these adhesions off the overlying anterior abdominal wall. Bowel appeared to be down and away the entire time anyway, but no thermal energy was used in the clearing off of these adhesions from the overlying abdominal wall, which was accomplished in a fairly straightforward manner. Once we had good access to the right abdomen, particularly the area of the right colon and cecum, we then resited the camera to the periumbilical site and changed out the 5 mm right upper abdominal trocar for a 12 mm trocar and then airplaned the patient towards the left side and placed her in slight Trendelenburg. The appendix was identified by gradually rolling the lateral aspect of the right colon and cecum towards the midline and it eventually appeared in to view; it did appear to be moderately indurated in its distal two-thirds. It was grasped with a grasper and elevated towards the overlying abdominal wall. There was no evidence of necrosis, gangrene or perforation. A small window was made in the mesoappendix after we made sure that all the bowel was down and away and it was a fairly thick mesoappendix and it was taken down with sequential firings of the endovascular 35 mm WENDY stapler without difficulty. An additional staple firing was used to transect the appendix in standard fashion without difficulty. The appendix was then removed and placed in an EndoCatch and taken out through the right upper abdominal trocar site. We then examined the area of the dissection and the staple lines. There was some oozing on the mesenteric staple line and this was addressed with some Surgicel. In inspecting this further, I noted that there appeared to be a bit longer appendiceal stump than I had otherwise expected and it appeared that the stapler had slid up the appendix some prior to transection and leaving a longer stump than I felt was appropriate, so I elected to go ahead and remove an additional length of the appendix down closer to its junction point with the cecum and this was accomplished with an additional firing of the stapler after grasping the appendiceal stump and elevating it away from the underlying bowel and colon. We were able to reapply the stapler in that same window but this time left a much smaller, less than 1 cm stump just above its junction point with the cecum. This section was retrieved and removed with an EndoCatch through the right upper abdominal trocar site as well and then added to the aforementioned specimen and they were sent together as appendix. We then gently irrigated the area out and made sure there was no active bleeding or hemorrhage. Some additional Surgicel was applied on the staple lines, which did now appeared to be hemostatic. I then removed the right upper abdominal 12 mm trocar site and closed this at the fascial level with an interrupted 0 Vicryl suture without difficulty, utilizing the inlet fascial closure device. We then irrigated out a final time, surveyed the abdomen a final time and made sure that everything appeared to be hemostatic, which it did, and then removed our trocars, one after the next under direct vision to assure no evidence of active bleeding. We also relieved pneumoperitoneum. Incisions were then closed with interrupted 3-0 Vicryl and 4-0 Monocryl sutures, respectively. Steri-Strips and sterile dressings were applied. SPECIMENS: Specimen was examined on the back table and sent to pathology. COMPLICATIONS: None apparent. FINDINGS: As discussed. ESTIMATED BLOOD LOSS: Roughly 5 mL. DRAINS: None. BW:sher Job ID: [id number] Doc ID: [id number] Julio Cesar Arechiga M.D.
[2022-10-03] MEDS: DEXTROSE 5%-LR 1,000 ML IV SCH ×2 (08:35→12:52)
[2022-10-03] MEDS ORDERED: cloNIDine HCL 0.1 MG TABLET PO SCH ×2 (09:00)
[2022-10-03] MEDS: cloNIDine HCL 0.1 MG TABLET PO SCH ×2 (09:15→20:06)
[2022-10-03] MEDS: LORazepam 1 MG TABLET PO SCH ×4 (09:25→20:06)
[2022-10-03] MEDS: SPIRONOLACTONE 25 MG TABLET PO SCH ×2 (09:25→20:05)
[2022-10-03] MEDS: DICYCLOMINE 20 MG TABLET PO SCH ×3 (09:26→20:07)
[2022-10-03] MEDS: OMEPRAZOLE 20 MG CAPSULE PO SCH ×2 (09:29→20:05)
[2022-10-03] MEDS: PARoxetine 20 MG TABLET PO SCH (09:29)
--- NOTE | 2022-10-03 11:54 | General Surgery Progress Note ---
SUBJECTIVE Subjective Patient information: Note initiated : 10/03/22 at 11:50 am Service Date, if different from initiated Date: [] Patient: Allison Ji 52 y/o F admitted on 10/01/22 for flu. Chief Complaint: [] Having issues with pain, her fentanyl patch has been resumed and she seems to be doing better Constitutional Vitals: Vital Signs Temp Pulse Resp BP Pulse Ox O2 Del Method O2 Flow Rate 98.2 F 106 H 20 161/100 100 2 10/03/22 07:20 10/03/22 05:23 10/03/22 07:20 10/03/22 07:20 10/03/22 07:20 10/03/22 07:20 10/02/22 11:50 Period Temp Pulse Resp BP Sys/Cui Pulse Ox O2 Del Method O2 Flow Rate Last 24 Hr 98.2 F-99.1 F 91-109 16-20 128-161/89-110 89-100 Room Air-Room Air Intake and Output 10/02/22 10/03/22 10/03/22 19:59 03:59 11:59 Intake Total 500 1365 1445 Output Total 4997 620 0691 Balance -1100 465 295 Weight 208 lb Intake & Output: Intake & Output 10/02/22 10/03/22 10/03/22 19:59 03:59 11:59 Intake Total 500 1365 1445 Output Total 8360 765 6373 Balance -1100 465 295 Weight 208 lb Intake: IV 300 1365 365 Dextrose 5%-Lactated Ringers 1, 1000 000 ml @ 100 mls/hr IV .Q10H [facility] Rx#:[id number] Oral 200 1080 Output: Void Amount 3661 399 5506 Other: Urine Appearance Clear Clear Clear Urine Color Yellow Yellow Dark Yellow Urine Odor Normal # Bowel Movements 0 Exam: Conversant, Non toxic, NAD Respiratory Additional comments: normal effort without distress Cardiovascular Cardiovascular exam: Present normal rate and rhythm and RRR GI/Abdominal Additional comments: soft and non distended, dressings in place Extremities Exam Additional comments: appear well perfused A/P Assessment and plan (1) Acute appendicitis: Assessment and plan: POD #1 Lap Appendectomy Doing Well but struggling with pain/emotional issues Advance activity and diet today No discharge for now Status: Acute Time Spent With Patient Time: Total time spent is greater than 50% in coordination of care (as documented) at patient's floor/unit and/or counseling patient:
[2022-10-03] MEDS: BISACODYL 10 MG SUPP.RECT PR SCH (13:01)
[2022-10-03] MEDS ORDERED: ZOLPIDEM 5 MG TABLET PO SCH (21:00)
[2022-10-04] MEDS: oxyCODONE HCL 5 MG TABLET PO PRN ×4 (02:23→16:13)
[2022-10-04] MEDS: ONDANSETRON 4 MG/2 ML VIAL IV PRN ×2 (02:23→11:54)
[2022-10-04] MEDS: DEXTROSE 5%-LR 1,000 ML IV SCH ×2 (02:24→16:07)
[2022-10-04] MEDS: ACETAMINOPHEN 650 MG/65 ML BAG IV SCH ×2 (05:12→15:46)
[2022-10-04] MEDS: LORazepam 1 MG TABLET PO SCH ×4 (05:14→16:13)
[2022-10-04 07:47] LABS: Hematocrit 30.5 % (34.1-44.9); Hemoglobin 9.7 g/dL (11.2-15.7); Mean Cell Volume 93.6 fL (80.0-100.0); Mean Corpuscular HGB Conc 31.8 g/dL (31.0-36.0); Mean Platelet Volume 10.8 fL (8.8-12.5); Platelet Count 245 K/mcL (140-440); RBC 3.26 M/mcL (3.59-5.38); Red Cell Distribution Width 12.2 % (11.5-14.5); WBC 8.9 K/mcL (4.5-11.0)
[2022-10-04] MEDS: BISACODYL 10 MG SUPP.RECT PR SCH (08:03)
[2022-10-04] MEDS: PARoxetine 20 MG TABLET PO SCH (08:11)
[2022-10-04] MEDS: SPIRONOLACTONE 25 MG TABLET PO SCH (08:11)
[2022-10-04] MEDS: cloNIDine HCL 0.1 MG TABLET PO SCH (08:11)
[2022-10-04] MEDS: DICYCLOMINE 20 MG TABLET PO SCH ×2 (08:11→16:15)
[2022-10-04] MEDS: OMEPRAZOLE 20 MG CAPSULE PO SCH (08:11)
[2022-10-04 08:13] LABS: Blood Urea Nitrogen 6 mg/dL (6-20); Calcium 8.6 mg/dL (8.6-10.4); Carbon Dioxide 34 mmol/L (22-30); Chloride 103 mmol/L (96-108); Glomerular Filtration Rate 84; Glucose 78 mg/dL (70-105)
--- NOTE | 2022-10-04 11:23 | General Surgery Progress Note ---
SUBJECTIVE Subjective Patient information: Note initiated : 10/04/22 at 11:17 am Service Date, if different from initiated Date: [] Patient: Allison Ji 52 y/o F admitted on 10/01/22 for flu. Chief Complaint: [] Day 2 following Lap Appendectomy. Doing much better and feels ready for discharge Constitutional Vitals: Vital Signs Temp Pulse Resp BP Pulse Ox O2 Del Method O2 Flow Rate 97.3 F 85 22 151/92 98 2 10/04/22 07:43 10/04/22 07:43 10/04/22 08:15 10/04/22 07:43 10/04/22 08:15 10/04/22 08:15 10/02/22 11:50 Period Temp Pulse Resp BP Sys/Cui Pulse Ox O2 Del Method O2 Flow Rate Last 24 Hr 97.3 F-98.8 F 78-94 - 110-151/58-96 94-100 Room Air-Room Air Intake and Output 10/03/22 10/04/22 10/04/22 19:59 03:59 11:59 Intake Total 1305 1065 265 Output Total 350 300 430 Balance 955 765 -165 Weight 209 lb Intake & Output: Intake & Output 10/03/22 10/04/22 10/04/22 19:59 03:59 11:59 Intake Total 1305 1065 265 Output Total 350 300 430 Balance 955 765 -165 Weight 209 lb Intake: IV 1065 1065 65 Dextrose 5%-Lactated Ringers 1, 1000 1000 000 ml @ 75 mls/hr IV .[id number] [facility] Rx#:[id number] Oral 240 200 Output: Void Amount 350 300 430 # of times incontinent of urine 0 Other: Urine Appearance Clear Clear Urine Color Bright Yellow Dark Yellow Urine Odor Normal Stool Size Small Small Stool Color Brown Brown Yellow Stool Consistency Watery Loose Loose # Voids 1 1 # Bowel Movements 1 # of times incontinent of 0 Bowels Exam: Looks well, pleasantly conversant, feeling well Respiratory Respiratory exam: Present normal respiratory exam Cardiovascular Cardiovascular exam: Present RRR GI/Abdominal Additional comments: inccisions and dressings are intact soft and non distended, minimally tender A/P Assessment and plan (1) Acute appendicitis: Assessment and plan: POD #2 Lap Appendectomy Doing Well Home Today Clinic follow up in the next 1-2 weeks Status: Acute Time Spent With Patient Time: Total time spent is greater than 50% in coordination of care (as documented) at patient's floor/unit and/or counseling patient:
[2022-10-04] MEDS: tiZANidine 4 MG TABLET PO SCH ×2 (12:15→16:13)
== END 2022-10-04 18:03 | disposition home or self-care (01) ==
LOC: ED 11:59 → MEDSUR 11:59
PROVIDERS: ADMIT Surgery Surgical Critical Care; ATTEND Surgery Surgical Critical Care

== ENCOUNTER 2022-12-16 13:20 | Observation (INO) ==
[2022-12-16] MEDS ORDERED: IOPAMIDOL 100 ML BOTTLE IV ONE (13:21)
[2022-12-16] MEDS ORDERED: ONDANSETRON 4 MG/2 ML VIAL IV ONE ×2 (13:38→14:40)
[2022-12-16] MEDS ORDERED: LORazepam 2 MG/ML VIAL IV ONE ×2 (13:54→19:06)
--- NOTE | 2022-12-16 14:00 | Emergency Department Note ---
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 The nausea and vomiting started acutely this morning upon waking. She was seen in the ER on 12/02 and diagnosed with colitis. Her WBC was 22,500 at that time. She was placed on Augmentin BID x 10 days. She has been having persistent abdominal pain over many months, but this morning became progressively more acute with severe nausea and vomiting. She had some Zofran at home, but was unable to keep it down. She denies fever/chills/sweats. Previous abdominal surgeries include a cholecystectomy and appendectomy. She denies marijuana use. She denies excessive alcohol intake. Patient is on 420 morphine equivalents per day with 50 mcg fentanyl patch and 10/325 mg hydrocodone every 4 hours. This is managed by Kaye Sharma PA-C. She did not replace her fentanyl patch this morning because she was vomiting so violently and forgot. Related Data Home Medications Medication Instructions Recorded Confirmed lorazepam 1 mg tablet 1 mg PO QID anxiety 01/24/20 10/27/22 paroxetine HCl 40 mg tablet 20 mg PO QDAY 08/28/22 11/27/22 zolpidem 10 mg tablet 10 mg PO HS 08/28/22 11/27/22 spironolactone 25 mg tablet 25 mg PO BID 10/01/22 11/27/22 lorazepam 1 mg tablet 1 mg PO PRN 11/24/22 11/27/22 Previous Rx's Medication Instructions Recorded febuxostat 80 mg tablet (Uloric) 80 mg PO QDAY #90 tabs 08/05/21 dicyclomine 10 mg capsule 10 mg PO TID IBS #90 caps 06/27/22 omeprazole 20 mg capsule,delayed 20 mg PO BID #60 caps 09/21/22 release docusate sodium 100 mg capsule 100 mg PO QDAY #7 caps 10/04/22 (Dulcolax Stool Softener (docusate)) acyclovir 400 mg tablet 400 mg PO QDAY PRN Break out #60 10/08/22 tabs ondansetron HCl 4 mg tablet 4 mg PO Q4-6HP PRN break out #14 10/08/22 tabs magnesium citrate 100 mg tablet 100 mg PO QDAY #5 tabs 10/27/22 tizanidine 4 mg tablet (Zanaflex) 4 mg PO QID #120 tabs 11/10/22 hydrocodone 10 mg-acetaminophen 1 tab PO Q4H PRN pain #180 tabs 11/24/22 325 mg tablet naloxone 4 mg/actuation nasal 4 mg intranasal Q2M PRN opioid 11/24/22 spray (Narcan) overdose #2 ea amoxicillin 875 mg-potassium 1 tab PO BID #20 tabs 12/02/22 clavulanate 125 mg tablet fentanyl 50 mcg/hr transdermal 1 patch transdermal Q48H #15 12/04/22 patch patches clonidine HCl 0.1 mg tablet 0.1 mg PO BID #60 tabs 12/15/22 Allergies Allergy/AdvReac Type Severity Reaction Status Date / Time dichloralphenazone Allergy Mild Hives Verified 11/24/22 14:48 [From Midrin] Isometheptene [From Midrin] Allergy Mild Hives Verified 11/24/22 14:48 Sulfa (Sulfonamide Allergy Mild HIVES Verified 11/24/22 14:48 Antibiotics) [SULFA (SULFONAMIDE ANTIBIOTICS)] hydroxyzine Allergy Unknown unknown Verified 11/24/22 14:48 chlorpromazine AdvReac Intermediate Palpitation Verified 11/24/22 14:48 [From Thorazine] s diphenhydramine AdvReac Intermediate CRAWL OUT Verified 11/24/22 14:48 OF SKIN promethazine [From PHENERGAN] AdvReac Intermediate CRAWL OUT Verified 11/24/22 14:48 OF SKIN sumatriptan [From IMITREX] AdvReac Intermediate CRAWL OUT Verified 11/24/22 14:48 OF SKIN haloperidol [From Haldol] AdvReac Mild involuntary Verified 11/24/22 14:48 muscle movements quetiapine [From Seroquel] AdvReac Mild Vomiting Verified 11/24/22 14:48 sulfa Allergy Mild Rash Uncoded 11/24/22 14:48 Review of Systems <Bernie Flynn PA-C - Last Filed: 12/17/22 03:52> ROS ROS Narrative: Narrative: All systems ED: reviewed and negative except as stated. PFSH <Bernie Flynn PA-C - Last Filed: 12/17/22 03:52> Narrative Patient History Narrative: Narrative: Medical/Surgical/Family History All Active Problems Colitis (Acute) Abdominal pain (Acute) Constipation (Acute) Irritable bowel syndrome (Acute) Pharyngitis (Acute) Occipital neuralgia (Chronic) Anxiety (Acute) Insomnia (Acute) Urinary bladder incontinence (Acute) Myofascial pain (Chronic) URI (upper respiratory infection) (Acute) Bronchitis (Acute) CRPS (complex regional pain syndrome type I) (Chronic) Esophageal stricture (Chronic) Complex regional pain syndrome i of right upper limb (Chronic) Radiculopathy, cervical region (Chronic) Right arm pain (Chronic) Cervicalgia (Chronic) Bronchitis (Chronic) Degenerative disc disease (Chronic) Sleep disorder (Chronic) Panic disorder (Chronic) History of MRSA infection (Chronic ~08/26/07) Radiculopathy, lumbosacral region (Chronic) Complex regional pain syndrome type 2 of left lower extremity (Chronic) CRPS (complex regional pain syndrome) type I of lower limb (Chronic) Radiculopathy, lumbar region (Chronic) Common bile duct stricture (Chronic) Breast nodule (Chronic) Hypertension (Chronic) Constipation, chronic (Chronic) Neoplasm of uncertain behavior of skin (Chronic) Obstructive sleep apnea (Chronic) PTSD (post-traumatic stress disorder) (Chronic) Anxiety disorder (Chronic) UTI (urinary tract infection) (Chronic) Menopausal and postmenopausal disorder (Chronic) Gout (Chronic) Encounter for long-term use of opiate analgesic (Chronic) Lytic lesion of bone on x-ray (Chronic) Moab light chain disease (Chronic) Viral URI (Chronic) Spindle cell sarcoma (Chronic) Bronchitis, acute, with bronchospasm (Chronic 12/28/14) Night terrors (Chronic) Decrease in appetite (Chronic) Decreased libido without sexual dysfunction (Chronic) Upper respiratory infection (Chronic) Syncope (Chronic) Cough (Chronic) Depression (Chronic) Diarrhea (Chronic) Dysphonia (Chronic) LFT elevation (Chronic) Epistaxis (Chronic) Anxiety (Chronic) Esophageal reflux (Chronic) Fatigue (Chronic) Gastritis and gastroduodenitis (Chronic) Palpitations (Chronic 07/24/08) Tachycardia (Chronic) Nausea (Chronic) Abdominal pain (Chronic) Bile duct stricture (Chronic) Postprocedural hematoma (Chronic) Vaginal candidiasis (Chronic) Atopic dermatitis (Chronic) Antibiotic-associated diarrhea (Chronic) Infection following a procedure, subsequent encounter (Chronic) Traumatic secondary and recurrent hemorrhage (Chronic) Seroma (Chronic 06/15/13) Back pain (Chronic) Other dorsalgia (Chronic 12/30/13) Chronic insomnia (Chronic) History of abdominoplasty (Chronic 06/20/16) 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) Chronic pain (Chronic) Dry eyes (Chronic) Weight gain (Chronic) RUQ pain (Chronic 06/07/14) Flushing (Chronic 10/15/11) Joint pain (Chronic 09/25/14) Heat intolerance (Chronic 03/03/11) Cold intolerance (Chronic) Hx of cholecystectomy (Chronic 06/15/14) History of total abdominal hysterectomy (Chronic ~1996) Positive FRANCES (antinuclear antibody) (Chronic 08/26/07) Abnormal immunological finding in serum (Chronic) Polyarthralgia (Chronic) Fibromyalgia (Chronic 09/09/04) Encounter for wound care of surgical pin site (Chronic) Medical History Abdominal pain Abnormal immunological finding in serum Antibiotic-associated diarrhea Anxiety Anxiety Anxiety disorder Atopic dermatitis Back pain Bile duct stricture Breast nodule Bronchitis Bronchitis, acute, with bronchospasm (12/28/14) Cervicalgia Chronic insomnia Chronic pain CMV (cytomegalovirus infection) Cold intolerance Common bile duct stricture Complex regional pain syndrome i of right upper limb Complex regional pain syndrome type 2 of left lower extremity Constipation, chronic Cough CRPS (complex regional pain syndrome type I) Left lower limb CRPS (complex regional pain syndrome) type I of lower limb Decrease in appetite Decreased libido without sexual dysfunction Degenerative disc disease Depression Diarrhea Dry eyes Dysphonia (02/23/15-[facility]) Encounter for long-term use of opiate analgesic Encounter for wound care of surgical pin site Epistaxis Rekha-Jose infection Esophageal reflux 10/09/2014-[place] Esophageal stricture Fatigue Fibromyalgia (09/09/04) Flushing (10/15/11) Gastritis and gastroduodenitis 10/09/2014-[place] Gout Heat intolerance (03/03/11) History of MRSA infection (~08/26/07) Hypertension Ran out of clonidine-refill 10/27/2022 Infection following a procedure, subsequent encounter Insomnia Joint pain (09/25/14) Mo[place] light chain disease LFT elevation Lytic lesion of bone on x-ray Menopausal and postmenopausal disorder Myofascial pain Nausea Neoplasm of uncertain behavior of skin of lower leg Night terrors Obstructive sleep apnea Occipital neuralgia Other dorsalgia (12/30/13) Palpitations (07/24/08) Panic disorder Polyarthralgia Postprocedural hematoma PTSD (post-traumatic stress disorder) Radiculopathy, cervical region Radiculopathy, lumbar region Radiculopathy, lumbosacral region Right arm pain RUQ pain (06/07/14) Seroma (06/15/13) Sleep disorder none restorative sleep pattern Spindle cell sarcoma Syncope Tachycardia Traumatic secondary and recurrent hemorrhage Upper respiratory infection UTI (urinary tract infection) Vaginal candidiasis Viral URI Weight gain Surgical History History of abdominoplasty (06/20/16) In [place] History of surgery 10/05 [facility] Permanent w/ sed 10/01/201809/05 [facility] Trial w/sed 08/24/201806/05 Lumbar Sympathetic Block Lt L2, L3 w/sed 06/03/1805/05 Lumbar Sympathetic Block L2, L3, left w/sed 04/27/201804/05 Lumbar Sympathetic Block, L2 & L3, left w/sed 04/12/201810/04 Sympathetic Block L2, L3 w/sed 10/08/1710/04 Lumbar Sympathetic Block, L2 and L3 w/sed 09/29/201709/04 Lumbar Sympathetic Block, L2 and L3 Left w/sed 09/02/201703/04 Lumbar Sympathetic Block, L2 and L3 Left w/sed 03/04/201710/03 Lumbar Sympathetic Block, L2, L3 left w/sed 10/01/201610/03 Lumbar Sympathetic Block, Left L2, L3 w/sed 09/23/201609/03 Lumbar Sympathetic Block, L2, L3 left w/sed 09/15/201608/01 TF STACIE #1 Bilat L4-5 w/sed 07/26/201407/31 LESI #1 L5-S1 w/sed 07/19/201309/28 Endoscopic Discectomy, L4-5 w/sed 10-15-1103/29 No Procedure-started SED preauth process 03/19/1103/29 NOTE: PT HAD SEVERE PANIC ATTACK WITH LAST STEROID INJECTION- WOULD NOT RECOMMEND USING AGAIN 03/19/1102/26 TF STACIE #1 Left L5-S1 w/sed (03-03-11) 02/23 TF STACIE #2, Left, L4-5 (no sed) 01/24 LESI #1, L4-5 (no sed) 06/25 Endoscopic Discectomy, L4-5 03/24 [facility] Trial, ANS History of total abdominal hysterectomy (~1996) Hx of cholecystectomy (06/15/14) Positive FRANCES (antinuclear antibody) (08/26/07) Family History Family/Other Cervical cancer Grandmother Breast cancer Grandfather Arthritis Heart disease Hypertension Seizures Mother Breast cancer Grandmother Lung cancer Social History Smoking Status: Former smoker Alcohol Intake Frequency: does not drink Substance Use: does not use Exam <Bernie Flynn PA-C - Last Filed: 12/17/22 03:52> Narrative Narrative: General: AOx3, acutely nauseated and vomiting/retching. Pleasant and conversant. HEENT: PERRL, EOMI, normocephalic. Dry mucous membranes. Normal facies and normal dentition. Chest: Symmetric, no pain to palpation Respiratory: Lungs clear to auscultation bilaterally. No respiratory distress. Unlabored breathing. Heart: Tachycardic rate and rhythm, no murmurs/clicks/rubs. Abdomen: Diffuse abdominal tenderness with positive De Leon's rebound tenderness, the abdomen is non distended. Extremities: Warm and well perfused. No edema. DP 2+ bilaterally. No venous stasis. Neuro: No focal deficits. Cranial nerves II-XII grossly normal. Skin: Warm dry, no rashes or lesions, no cyanosis. Psych: Normal mood and affect Heme/Lymph: No abnormal bruising General Limitations: no limitations Course <Bernie Flynn PA-C - Last Filed: 12/17/22 03:52> Course Course Narrative: 52-year-old female presents with acute nausea and vomiting and abdominal pain Reevaluation(s) Reevaluation #1: Obtain basic labs, hepatic panel, lipase, VBG CT of the abdomen pelvis with contrast to rule out abscess, perforation IV access give 1 L IV fluids nausea medications and pain medication Give Zosyn IV empirically with concern for abscess or perforation Patient states she has multiple allergies to antiemetics including Phenergan, Vistaril, Metra clopamide. These cause severe anxiety. She also has a severe reaction to Haldol and cannot take this. Reevaluation #2: CT scan shows common bile duct measuring 12 mm with smooth tapering of the pap illary level. This is compatible with postcholecystectomy papillary stenosis. Mild fatty changes seen in the liver but no focal hepatic lesion. There is moderate dilatation of the intrahepatic common hepatic and common bile ducts. The imaging is read as negative. CBC with white blood cell count of 11,600, hemoglobin is 16.2/49.1. This does suggest human concentration. Platelet count is 517. Neutrophil count 8.74 VBG with lactic 1.5 AST 38, ALT 72, Alk Phos 224 Lipase [address] Cunningham, general surgery and we reviewed the images together. He does not feel that this is a choledocholithiasis given that she has no elevation of her T. bili and her CT findings are consistent with postcholecystectomy changes. He is recommending continued ER evaluation and control of her nausea/vomiting and pain. He will see her in the morning and consider ERCP recommendation at that time. Time: 23:40 Reevaluation #3: Patient with no control of her pain and ongoing nausea. Her vomiting has not recurred since around 6 PM. Looking for alternative explanations for abdominal pain, but concern would be for choledocholithiasis; however, her T. bili is not elevated and her liver enzymes are not all that impressive. Abdominal aorta ultrasound has been ordered to rule out aneurysm that might suggest a dissection. The patient had contrast within less than 24 hours and radiology protocol does not allow for repeat contrast at this time. I have ordered a CT angiogram to [place] for dissection and this is pending. In the meantime a D-dimer is also pending. Patient is now hypertensive so we have ordered nicardipine drip to keep her systolic blood pressure less than 130 mmHg. Additional Reevaluation(s): Antiemetics received: Ativan 1 mg x 3 doses Zofran 4 mg IV x3 doses Scopolamine patch Phenergen x 1 dose Phenergan per rectum Pain medication received: Dilaudid 1 mg x 3 doses 50 mcg fentanyl patch replaced Vital Signs Vital signs: Vital Signs Temperature 98.3 F 12/16/22 13:45 Pulse Rate 158 H 12/16/22 13:45 Respiratory Rate 20 12/16/22 13:45 Blood Pressure 164/102 12/16/22 13:45 Pulse Oximetry (%) 96 12/16/22 13:45 Oxygen Delivery Method Room Air 12/16/22 13:45 Temperature 98.3 F 12/16/22 13:45 Pulse Rate 66 12/17/22 06:31 Respiratory Rate 8 L 12/17/22 06:31 Blood Pressure 121/102 12/17/22 06:31 Pulse Oximetry (%) 96 12/17/22 06:31 Oxygen Delivery Method Room Air 12/16/22 13:45 <Nicolas Cunningham MD - Last Filed: 12/17/22 06:56> Consultations Consultation #1: Assumed care of patient from Bernie approximately reviewed labs and x-rays and evaluated patient. She just received Dilaudid and her pain was somewhat resolved. She is most tender in the right upper quadrant and subxiphoid region although she states there is referral down to the right lower quadrant when it is flaring up. Recommended focusing on the biliary side of the case rather than pressure control and evaluating for aneurysms. She was directly tender in the subxiphoid as well as the right upper quadrant without any rebound CVA or psoas tenderness after analgesia. Patient has a history of volume is vomiting as well as abdominal pain since approximately September other than a cholecystectomy in the distant past she required a large amount of antiemetics (Compazine Phenergan and Zofran), as well as analgesia with fentanyl patch hydrocodone and Dilaudid. Attempts are being made at this time to contact general surgery or referral to GI for their way for an ERCP as well as motility studies. Time: 23:00 Consultation #2: Was asked for pain meds and antiemetics by patient approximately 04 17. Interviewed the patient further and found more details. Patient is basically incapacitated by the constant nausea and frequent vomiting. She denies any hematemesis however or hematochezia or melena she has a history of a irritable bowel with both constipation and diarrhea phases. At the present time her pain is approximately 5 out of 10 and she feels the nausea is increasing. Went ahead and ordered Phenergan IV which seems to be the most effective for her as well as fentanyl 100 mcg IV. Patient will be turned over to the oncoming doctor at change of shift at 07 100. Time: 06:45 Vital Signs Vital signs: Vital Signs Temperature 98.3 F 12/16/22 13:45 Pulse Rate 158 H 12/16/22 13:45 Respiratory Rate 20 12/16/22 13:45 Blood Pressure 164/102 12/16/22 13:45 Pulse Oximetry (%) 96 12/16/22 13:45 Oxygen Delivery Method Room Air 12/16/22 13:45 Temperature 98.3 F 12/16/22 13:45 Pulse Rate 66 12/17/22 06:31 Respiratory Rate 8 L 12/17/22 06:31 Blood Pressure 121/102 12/17/22 06:31 Pulse Oximetry (%) 96 12/17/22 06:31 Oxygen Delivery Method Room Air 12/16/22 13:45 [facility] <Bernie Flynn PA-C - Last Filed: 12/17/22 03:52> [facility] Narrative Medical decision making narrative: Intractable nausea and vomiting Generalized abdominal pain Right upper quadrant abdominal pain Currently patient's work-up is still in process. An abdominal aorta ultrasound is pending to [facility] for aneurysm. D-dimer is also pending. She continues with IV Zofran, scopolamine patch. An EKG was obtained to evaluate her QTc, which is 459 ms. Pain control continues with IV Dilaudid and her home fentanyl. Patient may need transfer for ERCP and Dr. Cunningham, general surgery will evaluate her in the morning. I have signed the patient out to our ER physician, Dr. Cunningham as I am going off shift. Please see his note for further details and plan of care. Lab Data 12/16/22 13:50 Labs: Lab Results 12/16/22 12/16/22 12/16/22 Range/Units 13:50 13:50 14:08 WBC 11.6 H (4.5-11.0) K/mcL RBC 5.48 H (3.59-5.38) M/mcL Hgb 16.2 H (11.2-15.7) g/dL Hct 49.1 H (34.1-44.9) % POC Hct 46.0 (36-48) MCV 89.6 (80.0-100.0) fL MCH 29.6 (26.0-34.0) pg MCHC 33.0 (31.0-36.0) g/dL RDW 12.2 (11.5-14.5) % Plt Count 517 H (140-440) K/mcL MPV 11.4 (8.8-12.5) fL Immature Gran % (Auto) 0.3 (0.0-0.5) % Neut % (Auto) 75.4 (38.0-78.0) % Lymph % (Auto) 17.6 (15.5-49.0) % [place] % (Auto) 5.0 (1.0-12.0) % Eos % (Auto) 1.0 (0.0-7.0) % Baso % (Auto) 0.7 (0.0-2.0) % Lymph # (Auto) 2.04 (1.50-4.80) K/mcL [place] # (Auto) 0.58 (0.10-0.90) K/mcL Eos # (Auto) 0.12 (0.00-0.70) K/mcL Baso # (Auto) 0.08 (0.00-0.30) K/mcL Immature Gran # 0.04 (0.00-0.05) K/mcl Absolute Neutrophils 8.74 H (1.80-8.00) K/mcL D-Dimer (0.27-0.5) ug/mL POC VBG pH (7.32-7.42) POC VBG pCO2 at Temp (41-51) POC VBG pO2 (25-40) POC VBG HCO3 (24-28) POC VBG Total CO2 (25-29) POC Venous O2 Sat (40-70) POC VBG Base Excess (-2-2) VBG Lactic Acid (0.5-2) POC Sodium 149 H (133-145) POC Potassium 4.2 (3.3-5.1) POC Chloride 111 H (96-108) POC Total CO2 25.0 (22-30) POC BUN 13 (6-20) POC Creatinine 1.1 (0.6-1.2) POC Glucose 173 H (70-105) POC WB Ioniz Calcium 1.14 L (1.16-1.32) Total Bilirubin 0.4 (0.1-1.0) mg/dL Direct Bilirubin < 0.2 (0-0.3) mg/dL AST 38 H (<32) U/L ALT 72 H (<40) U/L Alkaline Phosphatase 224 H (39-117) U/L Total Protein 8.2 (5.9-8.4) gm/dL Albumin 4.5 (3.2-5.2) gm/dL Globulin 3.7 (2.2-3.7) gm/dL Lipase 13 (7-60) U/L 12/16/22 12/16/22 Range/Units 15:07 23:30 WBC (4.5-11.0) K/mcL RBC (3.59-5.38) M/mcL Hgb (11.2-15.7) g/dL Hct (34.1-44.9) % POC Hct (36-48) MCV (80.0-100.0) fL MCH (26.0-34.0) pg MCHC (31.0-36.0) g/dL RDW (11.5-14.5) % Plt Count (140-440) K/mcL MPV (8.8-12.5) fL Immature Gran % (Auto) (0.0-0.5) % Neut % (Auto) (38.0-78.0) % Lymph % (Auto) (15.5-49.0) % [place] % (Auto) (1.0-12.0) % Eos % (Auto) (0.0-7.0) % Baso % (Auto) (0.0-2.0) % Lymph # (Auto) (1.50-4.80) K/mcL [place] # (Auto) (0.10-0.90) K/mcL Eos # (Auto) (0.00-0.70) K/mcL Baso # (Auto) (0.00-0.30) K/mcL Immature Gran # (0.00-0.05) K/mcl Absolute Neutrophils (1.80-8.00) K/mcL D-Dimer < 0.27 L (0.27-0.5) ug/mL POC VBG pH 7.39 (7.32-7.42) POC VBG pCO2 at Temp 36.7 L (41-51) POC VBG pO2 67 H (25-40) POC VBG HCO3 22.5 L (24-28) POC VBG Total CO2 24.0 L (25-29) POC Venous O2 Sat 93.0 H (40-70) POC VBG Base Excess -2.0 (-2-2) VBG Lactic Acid 1.5 (0.5-2) POC Sodium (133-145) POC Potassium (3.3-5.1) POC Chloride (96-108) POC Total CO2 (22-30) POC BUN (6-20) POC Creatinine (0.6-1.2) POC Glucose (70-105) POC WB Ioniz Calcium (1.16-1.32) Total Bilirubin (0.1-1.0) mg/dL Direct Bilirubin (0-0.3) mg/dL AST (<32) U/L ALT (<40) U/L Alkaline Phosphatase (39-117) U/L Total Protein (5.9-8.4) gm/dL Albumin (3.2-5.2) gm/dL Globulin (2.2-3.7) gm/dL Lipase (7-60) U/L <Nicolas Cunningham MD - Last Filed: 12/17/22 06:56> [facility] Narrative Medical decision making narrative: Intractable nausea and vomiting Generalized abdominal pain Right upper quadrant abdominal pain Currently patient's work-up is still in process. An abdominal aorta ultrasound is pending to [facility] for aneurysm. D-dimer is also pending. She continues with IV Zofran, scopolamine patch. An EKG was obtained to evaluate her QTc, which is 459 ms. Pain control continues with IV Dilaudid and her home fentanyl. Patient may need transfer for ERCP and Dr. Cunningham, general surgery will evaluate her in the morning. I have signed the patient out to our ER physician, Dr. Cunningham as I am going off shift. Please see his note for further details and plan of care. Lab Data Labs: Lab Results 12/16/22 12/16/22 12/16/22 Range/Units 13:50 13:50 14:08 WBC 11.6 H (4.5-11.0) K/mcL RBC 5.48 H (3.59-5.38) M/mcL Hgb 16.2 H (11.2-15.7) g/dL Hct 49.1 H (34.1-44.9) % POC Hct 46.0 (36-48) MCV 89.6 (80.0-100.0) fL MCH 29.6 (26.0-34.0) pg MCHC 33.0 (31.0-36.0) g/dL RDW 12.2 (11.5-14.5) % Plt Count 517 H (140-440) K/mcL MPV 11.4 (8.8-12.5) fL Immature Gran % (Auto) 0.3 (0.0-0.5) % Neut % (Auto) 75.4 (38.0-78.0) % Lymph % (Auto) 17.6 (15.5-49.0) % [place] % (Auto) 5.0 (1.0-12.0) % Eos % (Auto) 1.0 (0.0-7.0) % Baso % (Auto) 0.7 (0.0-2.0) % Lymph # (Auto) 2.04 (1.50-4.80) K/mcL [place] # (Auto) 0.58 (0.10-0.90) K/mcL Eos # (Auto) 0.12 (0.00-0.70) K/mcL Baso # (Auto) 0.08 (0.00-0.30) K/mcL Immature Gran # 0.04 (0.00-0.05) K/mcl Absolute Neutrophils 8.74 H (1.80-8.00) K/mcL D-Dimer (0.27-0.5) ug/mL POC VBG pH (7.32-7.42) POC VBG pCO2 at Temp (41-51) POC VBG pO2 (25-40) POC VBG HCO3 (24-28) POC VBG Total CO2 (25-29) POC Venous O2 Sat (40-70) POC VBG Base Excess (-2-2) VBG Lactic Acid (0.5-2) POC Sodium 149 H (133-145) POC Potassium 4.2 (3.3-5.1) POC Chloride 111 H (96-108) POC Total CO2 25.0 (22-30) POC BUN 13 (6-20) POC Creatinine 1.1 (0.6-1.2) POC Glucose 173 H (70-105) POC WB Ioniz Calcium 1.14 L (1.16-1.32) Total Bilirubin 0.4 (0.1-1.0) mg/dL Direct Bilirubin < 0.2 (0-0.3) mg/dL AST 38 H (<32) U/L ALT 72 H (<40) U/L Alkaline Phosphatase 224 H (39-117) U/L Total Protein 8.2 (5.9-8.4) gm/dL Albumin 4.5 (3.2-5.2) gm/dL Globulin 3.7 (2.2-3.7) gm/dL Lipase 13 (7-60) U/L 12/16/22 12/16/22 Range/Units 15:07 23:30 WBC (4.5-11.0) K/mcL RBC (3.59-5.38) M/mcL Hgb (11.2-15.7) g/dL Hct (34.1-44.9) % POC Hct (36-48) MCV (80.0-100.0) fL MCH (26.0-34.0) pg MCHC (31.0-36.0) g/dL RDW (11.5-14.5) % Plt Count (140-440) K/mcL MPV (8.8-12.5) fL Immature Gran % (Auto) (0.0-0.5) % Neut % (Auto) (38.0-78.0) % Lymph % (Auto) (15.5-49.0) % [place] % (Auto) (1.0-12.0) % Eos % (Auto) (0.0-7.0) % Baso % (Auto) (0.0-2.0) % Lymph # (Auto) (1.50-4.80) K/mcL [place] # (Auto) (0.10-0.90) K/mcL Eos # (Auto) (0.00-0.70) K/mcL Baso # (Auto) (0.00-0.30) K/mcL Immature Gran # (0.00-0.05) K/mcl Absolute Neutrophils (1.80-8.00) K/mcL D-Dimer < 0.27 L (0.27-0.5) ug/mL POC VBG pH 7.39 (7.32-7.42) POC VBG pCO2 at Temp 36.7 L (41-51) POC VBG pO2 67 H (25-40) POC VBG HCO3 22.5 L (24-28) POC VBG Total CO2 24.0 L (25-29) POC Venous O2 Sat 93.0 H (40-70) POC VBG Base Excess -2.0 (-2-2) VBG Lactic Acid 1.5 (0.5-2) POC Sodium (133-145) POC Potassium (3.3-5.1) POC Chloride (96-108) POC Total CO2 (22-30) POC BUN (6-20) POC Creatinine (0.6-1.2) POC Glucose (70-105) POC WB Ioniz Calcium (1.16-1.32) Total Bilirubin (0.1-1.0) mg/dL Direct Bilirubin (0-0.3) mg/dL AST (<32) U/L ALT (<40) U/L Alkaline Phosphatase (39-117) U/L Total Protein (5.9-8.4) gm/dL Albumin (3.2-5.2) gm/dL Globulin (2.2-3.7) gm/dL Lipase (7-60) U/L Discharge Plan Patient/Caregiver Discharge Instructions Pt seen by MUSIC THERAPIST/PA only: No Patient Disposition: Still a Patient Follow up with: Tong Ames MD [Primary Care Provider] - Prescriptions: No Action febuxostat [Uloric] 80 mg tablet 80 mg PO QDAY Qty: 90 4RF Rx Instructions: 1 po qday acyclovir 400 mg tablet 400 mg PO QDAY PRN (Reason: Break out ) Qty: 60 4RF Rx Instructions: 1 po BID ondansetron HCl 4 mg tablet 4 mg PO Q4-6HP PRN (Reason: break out) Qty: 14 3RF tizanidine [Zanaflex] 4 mg tablet 4 mg PO QID MDD 4 Qty: 120 2RF Narcan 4 mg/actuation spray,non-aerosol 4 mg INTRANASAL Q2M PRN (Reason: opioid overdose) Qty: 2 0RF Rx Instructions: Administer in nostril in the event of suspected overdose and call EMS fentanyl 50 mcg/hr patch 72 hour 1 patch TRANSDERMA Q48H Qty: 15 0RF Rx Instructions: *MUST LAST 30 DAYS* P/U 01/31, Start 02/01 clonidine HCl 0.1 mg tablet 0.1 mg PO BID Qty: 60 0RF lorazepam 1 mg tablet 1 mg PO QID Rx Instructions: 1 po QID zolpidem 10 mg tablet 10 mg PO HS paroxetine HCl 40 mg tablet 20 mg PO QDAY lorazepam 1 mg tablet 1 mg PO PRN hydrocodone-acetaminophen 10-325 mg tablet 1 tab PO Q4H MDD 6 PRN (Reason: pain) Qty: 180 0RF Rx Instructions: *MUST LAST 30 DAYS* P/U 01/31, Start 02/01 dicyclomine 10 mg capsule 10 mg PO TID Qty: 90 0RF omeprazole 20 mg capsule,delayed release(DR/EC) 20 mg PO BID Qty: 60 6RF Rx Instructions: swallow whole (do not chew/crush/cut) OR open capsule, sprinkle contents over tablespoonful applesauce; swallow all immediately/do not chew pellets magnesium citrate 100 mg tablet 100 mg PO QDAY Qty: 5 0RF spironolactone 25 mg tablet 25 mg PO BID Rx Instructions: TAKE 1 TABLET BY MOUTH TWICE DAILY docusate sodium [Dulcolax Stool Softener (dss)] 100 mg capsule 100 mg PO QDAY Qty: 7 0RF amoxicillin-pot clavulanate 875-125 mg tablet 1 tab PO BID Qty: 20 0RF Assumed care of patient at approximately 2230. Reviewed Bernie's notes, labs, CT findings and examined patient. At the time of my exam she was experiencing more pain in the right upper quadrant and subxiphoid, with severe compression tenderness, not so much percussion tenderness, and no rebound or referred tenderness. No distention, HSmegaly or pulsatile or other masses were palpated in the abdomen. Patient's persistent recurrent vomiting had also been successfully treated by then, and she exhibited no further vomiting. Patient required extraordinary amounts of antiemetiics (Zofran, phenergan and scopolamine), as well as analgesia (fentanyl patch, hydrocodone and dilaudid). She rested comfortably for several hours in the ED. Patient's personality seems to tend toward the histrionic which makes her symptoms even more dynamic, but the voluminous emesis and severe pain have to have an organic etiology. Believe endoscopic evaluation including ERCP is warranted. We will arrange for endoscopy.
[2022-12-16 14:14] LABS: POC Calcium, Ionized 1.14 (1.16-1.32); POC Creatinine 1.1 (0.6-1.2); POC Potassium 4.2 (3.3-5.1)
[2022-12-16] MEDS ORDERED: PIPERACILLIN SODIUM/TAZOBACTAM 3.375 GM in DEXTROSE 5% IN WATER 50 ML IV ONE (14:28)
[2022-12-16] MEDS ORDERED: HYDROmorphone 1 MG/ML SYRINGE IV ONE ×3 (14:28→23:28)
[2022-12-16] MEDS ORDERED: PROMETHAZINE 25 MG/ML VIAL IV ONE (14:29)
[2022-12-16] MEDS ORDERED: 0.9 % SODIUM CHLORIDE 1,000 ML IV ONE (15:02)
[2022-12-16 15:41] LABS: Basophils # (Auto) 0.08 K/mcL (0.00-0.30); Basophils % (Auto) 0.7 % (0.0-2.0); Eosinophils # (Auto) 0.12 K/mcL (0.00-0.70); Hematocrit 49.1 % (34.1-44.9); Hemoglobin 16.2 g/dL (11.2-15.7); Lymphocytes # (Auto) 2.04 K/mcL (1.50-4.80); Lymphocytes % (Auto) 17.6 % (15.5-49.0); Mean Cell Volume 89.6 fL (80.0-100.0); Mean Platelet Volume 11.4 fL (8.8-12.5); Monocytes # (Auto) 0.58 K/mcL (0.10-0.90); Neutrophils % (Auto) 75.4 % (38.0-78.0); Platelet Count 517 K/mcL (140-440); RBC 5.48 M/mcL (3.59-5.38); Red Cell Distribution Width 12.2 % (11.5-14.5); WBC 11.6 K/mcL (4.5-11.0)
[2022-12-16 16:06] LABS: ALT/SGPT 72 U/L (<40); AST/SGOT 38 U/L (<32); Albumin 4.5 gm/dL (3.2-5.2); Alkaline Phosphatase 224 U/L (39-117); Bilirubin,Direct < 0.2 mg/dL (0-0.3); Bilirubin,Total 0.4 mg/dL (0.1-1.0); Globulin 3.7 gm/dL (2.2-3.7)
[2022-12-16] MEDS ORDERED: PROMETHAZINE 25 MG SUPP.RECT PR ONE (16:11)
--- NOTE | 2022-12-16 17:01 | Cat Scan Report ---
CLINICAL INFORMATION: Right lower quadrant pain COMPARISON: None. TECHNIQUE: Following enteric contrast, 80 cc of Isovue-370 were injected intravenously, and 60 seconds later, 0.625 mm helical slices were obtained from the mid heart through the subtrochanteric regions. Following reconstruction, 2.5 mm sagittal, coronal and axial reformatted images were processed and reviewed at bone, lung and soft tissue windows. Five minutes later, 0.625 mm helical slices were obtained from the mid heart through the kidneys and viewed at soft tissue windows.The exam was performed using radiation dose optimization techniques including, but not limited to, automated exposure control, adjustment of the mA and/or kV according to patient size and use of iterative reconstruction technique. FINDINGS: The lung bases are clear. No effusions. The visualized heart is grossly normal. Abdominal images show the gallbladder is surgically absent. There is moderate dilatation of the intrahepatic common hepatic and common bile ducts: The common bile duct is 12 mm. There is smooth tapering near the papillary level. 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 Mild fatty change seen within the liver, but no focal hepatic lesion. Marked atrophy of the pancreatic head neck and proximal body seen as before. No pancreatic lesion. Both kidneys, adrenal glands, spleen and aorta including aortic branches are normal in size configuration and attenuation without focal lesion. There is no free air, free fluid or adenopathy. Pelvic images show hysterectomy changes. There is a 21 mm cyst in the retained left ovary. Right ovary not identified and may be surgically absent. The appendix is within surgically removed or there is bulbous dilatation of the appendiceal stump as previously seen. The stomach, small and large bowel are grossly normal. Bone windows show no osseous abnormality. Spinal stimulator battery pack seen in the subcutaneous soft tissue tissues at the L3 level with wires extending through the interlaminar space at L1-2 and ascending to the epidural space in lower thoracic region no change. IMPRESSION: 1. No cause identified for right lower quadrant pain. Appendix is surgically absent with mild bulbous dilatation of the appendiceal stump-as previously seen. 2. Moderate dilatation intrahepatic and common bile ducts most compatible post cholecystectomy papillary stenosis. Please correlate with LFTs 3. Fatty change within the liver. 4. Marked pancreatic atrophy particularly head neck and proximal body 5. 21 mm cyst left ovary. Interpreted and Authenticated by: Mateo Capellan 12/16/22
[2022-12-16] MEDS ORDERED: SCOPOLAMINE 1 PATCH PATCH TOPICAL ONE (17:39)
[2022-12-16] MEDS ORDERED: fentaNYL 50 MCG PATCH TOPICAL SCH (21:30)
[2022-12-16] MEDS ORDERED: KETOROLAC 30 MG/ML VIAL IV ONE (23:32)
[2022-12-16] MEDS ORDERED: HYDROmorphone 1 MG/ML SYRINGE IV PRN (23:45)
[2022-12-16] MEDS ORDERED: ONDANSETRON 4 MG/2 ML VIAL IV PRN (23:45)
[2022-12-17] MEDS: niCARdipine 25 MG in 0.9 % SODIUM CHLORIDE 240 ML IV ONE ×2 (00:08→01:35)
[2022-12-17] MEDS ORDERED: 0.9 % SODIUM CHLORIDE 1,000 ML IV ONE ×2 (00:57→01:07)
[2022-12-17] MEDS ORDERED: LABETALOL 5 MG/ML ML IV ONE (00:58)
--- NOTE | 2022-12-17 02:57 | Ultrasound Report ---
CLINICAL INFORMATION: Vomiting. Abdominal pain COMPARISON: None. FINDINGS: -Aortic dimensions: -Proximal: 2.5 -Suprarenal: 2.5 -Infrarenal: 1.8 -Distal: 1.4 -Right common iliac artery: 1.2 -Left common iliac artery: 1.2 IMPRESSION: Abdominal aorta is normal diameter. No evidence of AAA or dissection Interpreted and Authenticated by: Mateo Capellan 12/17/22
[2022-12-17] MEDS ORDERED: PROMETHAZINE 25 MG/ML VIAL IV ONE (06:45)
[2022-12-17] MEDS ORDERED: fentaNYL 100 MCG/2 ML VIAL IV ONE ×2 (06:46→07:36)
[2022-12-17 08:49] LABS: ALT/SGPT 108 U/L (<40); AST/SGOT 101 U/L (<32); Albumin 3.9 gm/dL (3.2-5.2); Albumin/Globulin Ratio 1.3 (1.0-2.3); Alkaline Phosphatase 215 U/L (39-117); Bilirubin,Total 0.6 mg/dL (0.1-1.0); Blood Urea Nitrogen 9 mg/dL (6-20); Calcium 8.9 mg/dL (8.6-10.4); Carbon Dioxide 25 mmol/L (22-30); Chloride 106 mmol/L (96-108); Globulin 3.1 gm/dL (2.2-3.7); Glomerular Filtration Rate 98; Glucose 99 mg/dL (70-105)
[2022-12-17] MEDS ORDERED: HYDROmorphone 1 MG/ML SYRINGE IV ONE (13:25)
--- NOTE | 2022-12-17 13:29 | Emergency Department Note ---
Course Course Course Narrative: I assumed care of patient at 0 700 pending evaluation by general surgery. Dr. Casey general surgery evaluate the patient with recommendation to admit the patient to his service. Patient was agreeable with admission. Vital Signs Vital signs: Vital Signs Temperature 98.3 F 12/16/22 13:45 Pulse Rate 158 H 12/16/22 13:45 Respiratory Rate 20 12/16/22 13:45 Blood Pressure 164/102 12/16/22 13:45 Pulse Oximetry (%) 96 12/16/22 13:45 Oxygen Delivery Method Room Air 12/16/22 13:45 Temperature 98.3 F 12/16/22 13:45 Pulse Rate 70 12/17/22 13:01 Respiratory Rate 14 12/17/22 13:01 Blood Pressure 162/105 12/17/22 13:01 Pulse Oximetry (%) 97 12/17/22 13:01 Oxygen Delivery Method Room Air 12/16/22 13:45 MDM MDM Narrative Medical decision making narrative: Narrative: Medical Records Medical records reviewed: Yes I reviewed the patient's medical records. Lab Data Lab results reviewed: Yes I reviewed the patient's lab results. 12/16/22 13:50 12/17/22 07:36 Labs: Lab Results 12/16/22 12/16/22 12/16/22 Range/Units 13:50 13:50 14:08 WBC 11.6 H (4.5-11.0) K/mcL RBC 5.48 H (3.59-5.38) M/mcL Hgb 16.2 H (11.2-15.7) g/dL Hct 49.1 H (34.1-44.9) % POC Hct 46.0 (36-48) MCV 89.6 (80.0-100.0) fL MCH 29.6 (26.0-34.0) pg MCHC 33.0 (31.0-36.0) g/dL RDW 12.2 (11.5-14.5) % Plt Count 517 H (140-440) K/mcL MPV 11.4 (8.8-12.5) fL Immature Gran % (Auto) 0.3 (0.0-0.5) % Neut % (Auto) 75.4 (38.0-78.0) % Lymph % (Auto) 17.6 (15.5-49.0) % Cottle % (Auto) 5.0 (1.0-12.0) % Eos % (Auto) 1.0 (0.0-7.0) % Baso % (Auto) 0.7 (0.0-2.0) % Lymph # (Auto) 2.04 (1.50-4.80) K/mcL Cottle # (Auto) 0.58 (0.10-0.90) K/mcL Eos # (Auto) 0.12 (0.00-0.70) K/mcL Baso # (Auto) 0.08 (0.00-0.30) K/mcL Immature Gran # 0.04 (0.00-0.05) K/mcl Absolute Neutrophils 8.74 H (1.80-8.00) K/mcL D-Dimer (0.27-0.5) ug/mL POC VBG pH (7.32-7.42) POC VBG pCO2 at Temp (41-51) POC VBG pO2 (25-40) POC VBG HCO3 (24-28) POC VBG Total CO2 (25-29) POC Venous O2 Sat (40-70) POC VBG Base Excess (-2-2) VBG Lactic Acid (0.5-2) POC Sodium 149 H (133-145) Sodium (133-145) mmol/L POC Potassium 4.2 (3.3-5.1) Potassium (3.3-5.1) mmol/L POC Chloride 111 H (96-108) Chloride (96-108) mmol/L Carbon Dioxide (22-30) mmol/L POC Total CO2 25.0 (22-30) Anion Gap (8.0-16.0) POC BUN 13 (6-20) BUN (6-20) mg/dL Creatinine (0.6-1.1) mg/dL POC Creatinine 1.1 (0.6-1.2) GFR Calculation Glucose (70-105) mg/dL POC Glucose 173 H (70-105) Calcium (8.6-10.4) mg/dL POC WB Ioniz Calcium 1.14 L (1.16-1.32) Total Bilirubin 0.4 (0.1-1.0) mg/dL Direct Bilirubin < 0.2 (0-0.3) mg/dL AST 38 H (<32) U/L ALT 72 H (<40) U/L Alkaline Phosphatase 224 H (39-117) U/L Total Protein 8.2 (5.9-8.4) gm/dL Albumin 4.5 (3.2-5.2) gm/dL Globulin 3.7 (2.2-3.7) gm/dL Albumin/Globulin Ratio (1.0-2.3) Lipase 13 (7-60) U/L 12/16/22 12/16/22 12/17/22 Range/Units 15:07 23:30 07:36 WBC (4.5-11.0) K/mcL RBC (3.59-5.38) M/mcL Hgb (11.2-15.7) g/dL Hct (34.1-44.9) % POC Hct (36-48) MCV (80.0-100.0) fL MCH (26.0-34.0) pg MCHC (31.0-36.0) g/dL RDW (11.5-14.5) % Plt Count (140-440) K/mcL MPV (8.8-12.5) fL Immature Gran % (Auto) (0.0-0.5) % Neut % (Auto) (38.0-78.0) % Lymph % (Auto) (15.5-49.0) % Cottle % (Auto) (1.0-12.0) % Eos % (Auto) (0.0-7.0) % Baso % (Auto) (0.0-2.0) % Lymph # (Auto) (1.50-4.80) K/mcL Cottle # (Auto) (0.10-0.90) K/mcL Eos # (Auto) (0.00-0.70) K/mcL Baso # (Auto) (0.00-0.30) K/mcL Immature Gran # (0.00-0.05) K/mcl Absolute Neutrophils (1.80-8.00) K/mcL D-Dimer < 0.27 L (0.27-0.5) ug/mL POC VBG pH 7.39 (7.32-7.42) POC VBG pCO2 at Temp 36.7 L (41-51) POC VBG pO2 67 H (25-40) POC VBG HCO3 22.5 L (24-28) POC VBG Total CO2 24.0 L (25-29) POC Venous O2 Sat 93.0 H (40-70) POC VBG Base Excess -2.0 (-2-2) VBG Lactic Acid 1.5 (0.5-2) POC Sodium (133-145) Sodium 141 (133-145) mmol/L POC Potassium (3.3-5.1) Potassium 3.8 (3.3-5.1) mmol/L POC Chloride (96-108) Chloride 106 (96-108) mmol/L Carbon Dioxide 25 (22-30) mmol/L POC Total CO2 (22-30) Anion Gap 10.0 (8.0-16.0) POC BUN (6-20) BUN 9 (6-20) mg/dL Creatinine 0.7 (0.6-1.1) mg/dL POC Creatinine (0.6-1.2) GFR Calculation 98 Glucose 99 (70-105) mg/dL POC Glucose (70-105) Calcium 8.9 (8.6-10.4) mg/dL POC WB Ioniz Calcium (1.16-1.32) Total Bilirubin 0.6 (0.1-1.0) mg/dL Direct Bilirubin (0-0.3) mg/dL AST 101 H (<32) U/L ALT 108 H (<40) U/L Alkaline Phosphatase 215 H (39-117) U/L Total Protein 7.0 (5.9-8.4) gm/dL Albumin 3.9 (3.2-5.2) gm/dL Globulin 3.1 (2.2-3.7) gm/dL Albumin/Globulin Ratio 1.3 (1.0-2.3) Lipase (7-60) U/L Radiology Data Radiology results reviewed: Yes I reviewed the patient's radiology results. Core Measures AMI Core Measures Followed: Yes Discharge Plan Patient/Caregiver Discharge Instructions Pt seen by EMERGENCY PLANNER/PA only: No Clinical Impression: Abdominal pain, LFT elevation Patient Disposition: Xfer As Outpt/Obs ([facility]) Condition: Good Follow up with: Tong Ames MD [Primary Care Provider] - Prescriptions: No Action febuxostat [Uloric] 80 mg tablet 80 mg PO QDAY Qty: 90 4RF Rx Instructions: 1 po qday acyclovir 400 mg tablet 400 mg PO QDAY PRN (Reason: Break out ) Qty: 60 4RF Rx Instructions: 1 po BID ondansetron HCl 4 mg tablet 4 mg PO Q4-6HP PRN (Reason: break out) Qty: 14 3RF tizanidine [Zanaflex] 4 mg tablet 4 mg PO QID MDD 4 Qty: 120 2RF Narcan 4 mg/actuation spray,non-aerosol 4 mg INTRANASAL Q2M PRN (Reason: opioid overdose) Qty: 2 0RF Rx Instructions: Administer in nostril in the event of suspected overdose and call EMS fentanyl 50 mcg/hr patch 72 hour 1 patch TRANSDERMA Q48H Qty: 15 0RF Rx Instructions: *MUST LAST 30 DAYS* P/U 01/31, Start 02/01 clonidine HCl 0.1 mg tablet 0.1 mg PO BID Qty: 60 0RF lorazepam 1 mg tablet 1 mg PO QID Rx Instructions: 1 po QID zolpidem 10 mg tablet 10 mg PO HS paroxetine HCl 40 mg tablet 20 mg PO QDAY lorazepam 1 mg tablet 1 mg PO PRN hydrocodone-acetaminophen 10-325 mg tablet 1 tab PO Q4H MDD 6 PRN (Reason: pain) Qty: 180 0RF Rx Instructions: *MUST LAST 30 DAYS* P/U 01/31, Start 02/01 dicyclomine 10 mg capsule 10 mg PO TID Qty: 90 0RF omeprazole 20 mg capsule,delayed release(DR/EC) 20 mg PO BID Qty: 60 6RF Rx Instructions: swallow whole (do not chew/crush/cut) OR open capsule, sprinkle contents over tablespoonful applesauce; swallow all immediately/do not chew pellets magnesium citrate 100 mg tablet 100 mg PO QDAY Qty: 5 0RF spironolactone 25 mg tablet 25 mg PO BID Rx Instructions: TAKE 1 TABLET BY MOUTH TWICE DAILY docusate sodium [Dulcolax Stool Softener (dss)] 100 mg capsule 100 mg PO QDAY Qty: 7 0RF amoxicillin-pot clavulanate 875-125 mg tablet 1 tab PO BID Qty: 20 0RF
[2022-12-17] MEDS ORDERED: ZOLPIDEM 5 MG TABLET PO PRN (14:32)
[2022-12-17] MEDS ORDERED: SCOPOLAMINE 1 PATCH PATCH TOPICAL SCH (14:45)
[2022-12-17] MEDS: LORazepam 2 MG/ML VIAL IV SCH ×2 (15:15→22:21)
--- NOTE | 2022-12-17 15:42 | General Surg History&Physical ---
HPI History of Present Illness Patient information: Note initiated : 12/17/22 at 3:25 pm Service Date, if different from initiated Date: [] Patient: Allison Ji a 52 y/o F admitted on for vomiting. Chief Complaint: [] Chief complaint: Recurrent abdominal pain with nausea and vomiting History of present illness: Ms. Ji is a 52 year old F admitted from the emergency room for treatment of intractable nausea vomiting and abdominal pain she is status postcholecystectomy and appendectomy. The patient has a history of chronic narcotic use for complex regional pain syndrome, history of spindle cell sarcoma of the neck, chronic fibromyalgia. She has greater than 48-hour history of nausea and vomiting. This is associated with lower abdominal pain exacerbation though she admits that she has had chronic abdominal pain for many years she states that she cannot keep down solids or liquids and has emesis with all p.o. intake. She denies alcohol or marijuana use. She was treated in the emergency room all yesterday and last evening for symptoms and has not improved. Review of her x-ray shows that she has the major portion of her stomach filled with food debris. She may have an element of gastric outlet obstruction. The patient is also on chronic narcotic use and states that she is taken chronic narcotic analgesics for many years. She will be admitted and treated symptomatically. She will also have EGD on Thursday. She states that she had a reaction to Reglan about 15 years ago. I will give her a trial of IV Reglan therapy to try to precipitate gastric emptying. Constitutional Constitutional: Present fatigue, lethargy, malaise and weakness EENT Ears: Absent decreased hearing or tinnitus Nose, mouth and throat: Present facial pain, mouth pain and throat swelling; Absent abnormal hearing Cardiovascular Cardiovascular: Absent chest pain with activity, dyspnea on exertion, edema or rapid heart rate Respiratory Respiratory: Absent dyspnea on exertion Gastrointestinal Gastrointestinal: Present abdominal pain, change in stool character, constipation, cramping, nausea and vomiting; Absent bloating Genitourinary Genitourinary: Absent nocturia, urinary frequency, urinary hesitancy or urinary urgency Musculoskeletal Musculoskeletal: Present arthralgias, muscle cramps, myalgias, neck pain and radiating pain into limb; Absent abnormal gait Neurological Neurological: Absent abnormal gait, frequent falls, numbness, paresthesias, sensory deficit or vertigo Psychiatric Psychiatric: Present abnormal sleep pattern, anxiety, behavioral changes, depression, irritability and mood swings Hematologic/Lymphatic Hematologic/Lymphatic: Absent easy bleeding, easy bruising or lymphadenopathy Allergic/Immunologic Allergic/Immunologic: Absent tongue swelling, throat swelling, uticaria or wheezing PFSH PFSH All Active Problems (Updated 12/17/22 @ 15:41 by Albertina Cunningham MD) Constipation due to opioid therapy (Acute) Chronic generalized abdominal pain (Acute) Nausea and vomiting (Acute) Colitis (Acute) Abdominal pain (Acute) Abdominal pain (Acute) Constipation (Acute) Irritable bowel syndrome (Acute) Pharyngitis (Acute) Occipital neuralgia (Chronic) Anxiety (Acute) Insomnia (Acute) Urinary bladder incontinence (Acute) Myofascial pain (Chronic) URI (upper respiratory infection) (Acute) Bronchitis (Acute) CRPS (complex regional pain syndrome type I) (Chronic) Esophageal stricture (Chronic) Complex regional pain syndrome i of right upper limb (Chronic) Radiculopathy, cervical region (Chronic) Right arm pain (Chronic) Cervicalgia (Chronic) Bronchitis (Chronic) Degenerative disc disease (Chronic) Sleep disorder (Chronic) Panic disorder (Chronic) History of MRSA infection (Chronic ~08/26/07) Radiculopathy, lumbosacral region (Chronic) Complex regional pain syndrome type 2 of left lower extremity (Chronic) CRPS (complex regional pain syndrome) type I of lower limb (Chronic) Radiculopathy, lumbar region (Chronic) Common bile duct stricture (Chronic) Breast nodule (Chronic) Hypertension (Chronic) Constipation, chronic (Chronic) Neoplasm of uncertain behavior of skin (Chronic) Obstructive sleep apnea (Chronic) PTSD (post-traumatic stress disorder) (Chronic) Anxiety disorder (Chronic) UTI (urinary tract infection) (Chronic) Menopausal and postmenopausal disorder (Chronic) Gout (Chronic) Encounter for long-term use of opiate analgesic (Chronic) Lytic lesion of bone on x-ray (Chronic) [place] light chain disease (Chronic) Viral URI (Chronic) Spindle cell sarcoma (Chronic) Bronchitis, acute, with bronchospasm (Chronic 12/28/14) Night terrors (Chronic) Decrease in appetite (Chronic) Decreased libido without sexual dysfunction (Chronic) Upper respiratory infection (Chronic) Syncope (Chronic) Cough (Chronic) Depression (Chronic) Diarrhea (Chronic) Dysphonia (Chronic) LFT elevation (Chronic) Epistaxis (Chronic) Anxiety (Chronic) Esophageal reflux (Chronic) Fatigue (Chronic) Gastritis and gastroduodenitis (Chronic) Palpitations (Chronic 07/24/08) Tachycardia (Chronic) Nausea (Chronic) Abdominal pain (Chronic) Bile duct stricture (Chronic) Postprocedural hematoma (Chronic) Vaginal candidiasis (Chronic) Atopic dermatitis (Chronic) Antibiotic-associated diarrhea (Chronic) Infection following a procedure, subsequent encounter (Chronic) Traumatic secondary and recurrent hemorrhage (Chronic) Seroma (Chronic 06/15/13) Back pain (Chronic) Other dorsalgia (Chronic 12/30/13) Chronic insomnia (Chronic) History of abdominoplasty (Chronic 06/20/16) 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) Chronic pain (Chronic) Dry eyes (Chronic) Weight gain (Chronic) RUQ pain (Chronic 06/07/14) Flushing (Chronic 10/15/11) Joint pain (Chronic 09/25/14) Heat intolerance (Chronic 03/03/11) Cold intolerance (Chronic) Hx of cholecystectomy (Chronic 06/15/14) History of total abdominal hysterectomy (Chronic ~1996) Positive FRANCES (antinuclear antibody) (Chronic 08/26/07) Abnormal immunological finding in serum (Chronic) Polyarthralgia (Chronic) Fibromyalgia (Chronic 09/09/04) Encounter for wound care of surgical pin site (Chronic) Medical History Abdominal pain Abnormal immunological finding in serum Antibiotic-associated diarrhea Anxiety Anxiety Anxiety disorder Atopic dermatitis Back pain Bile duct stricture Breast nodule Bronchitis Bronchitis, acute, with bronchospasm (12/28/14) Cervicalgia Chronic insomnia Chronic pain CMV (cytomegalovirus infection) Cold intolerance Common bile duct stricture Complex regional pain syndrome i of right upper limb Complex regional pain syndrome type 2 of left lower extremity Constipation, chronic Cough CRPS (complex regional pain syndrome type I) Left lower limb CRPS (complex regional pain syndrome) type I of lower limb Decrease in appetite Decreased libido without sexual dysfunction Degenerative disc disease Depression Diarrhea Dry eyes Dysphonia (02/23/15-Ovi) Encounter for long-term use of opiate analgesic Encounter for wound care of surgical pin site Epistaxis Rekha-Jose infection Esophageal reflux 10/09/2014-[place] Esophageal stricture Fatigue Fibromyalgia (09/09/04) Flushing (12/28/11) Gastritis and gastroduodenitis 10/09/2014-[place] Gout Heat intolerance (03/03/11) History of MRSA infection (~08/26/07) Hypertension Ran out of clonidine-refill 10/27/2022 Infection following a procedure, subsequent encounter Insomnia Joint pain (09/25/14) [place] light chain disease LFT elevation Lytic lesion of bone on x-ray Menopausal and postmenopausal disorder Myofascial pain Nausea Neoplasm of uncertain behavior of skin of lower leg Night terrors Obstructive sleep apnea Occipital neuralgia Other dorsalgia (12/30/13) Palpitations (07/24/08) Panic disorder Polyarthralgia Postprocedural hematoma PTSD (post-traumatic stress disorder) Radiculopathy, cervical region Radiculopathy, lumbar region Radiculopathy, lumbosacral region Right arm pain RUQ pain (06/07/14) Seroma (06/15/13) Sleep disorder none restorative sleep pattern Spindle cell sarcoma Syncope Tachycardia Traumatic secondary and recurrent hemorrhage Upper respiratory infection UTI (urinary tract infection) Vaginal candidiasis Viral URI Weight gain Surgical History History of abdominoplasty (06/20/16) In [place] History of surgery 10/05 [facility] Permanent w/ sed 10/01/201809/05 [facility] Trial w/sed 08/24/201806/05 Lumbar Sympathetic Block Lt L2, L3 w/sed 06/03/1805/05 Lumbar Sympathetic Block L2, L3, left w/sed 04/27/201804/05 Lumbar Sympathetic Block, L2 & L3, left w/sed 04/12/201810/04 Sympathetic Block L2, L3 w/sed 10/08/1710/04 Lumbar Sympathetic Block, L2 and L3 w/sed 09/29/201709/04 Lumbar Sympathetic Block, L2 and L3 Left w/sed 09/02/201703/04 Lumbar Sympathetic Block, L2 and L3 Left w/sed 03/04/201710/03 Lumbar Sympathetic Block, L2, L3 left w/sed 10/01/201610/03 Lumbar Sympathetic Block, Left L2, L3 w/sed 09/23/201609/03 Lumbar Sympathetic Block, L2, L3 left w/sed 09/15/201608/01 TF STACIE #1 Bilat L4-5 w/sed 07/26/201407/31 LESI #1 L5-S1 w/sed 07/19/201309/28 Endoscopic Discectomy, L4-5 w/sed 10-15-1103/29 No Procedure-started SED preauth process 03/19/1103/29 NOTE: PT HAD SEVERE PANIC ATTACK WITH LAST STEROID INJECTION- WOULD NOT RECOMMEND USING AGAIN 03/19/1102/26 TF STACIE #1 Left L5-S1 w/sed (03-03-11) 02/23 TF STACIE #2, Left, L4-5 (no sed) 01/24 LESI #1, L4-5 (no sed) 06/25 Endoscopic Discectomy, L4-5 03/24 SCS Trial, ANS History of total abdominal hysterectomy (~1996) Hx of cholecystectomy (06/15/14) Positive FRANCES (antinuclear antibody) (08/26/07) Family History Family/Other Cervical cancer Grandmother Breast cancer Grandfather Arthritis Heart disease Hypertension Seizures Mother Breast cancer Grandmother Lung cancer Social History household members: spouse housing: house lives independently: Yes marital status: occupational status: unemployed and retired occupation: [employer] 30 years other: [employer] physical activity: none smoking status: Former smoker alcohol intake frequency: does not drink substance use type: does not use seatbelt use: always additional history: Has 1 daughter Max Kate, granddaughters Ansley Alexander and Ravi. MEDS/ALLERGIES Home Medications and Allergies Home Medications Medication Instructions Recorded Confirmed Type lorazepam 1 mg tablet 1 mg PO QID anxiety 01/24/20 10/27/22 History febuxostat 80 mg tablet (Uloric) 80 mg PO QDAY #90 tabs 08/05/21 11/27/22 Rx dicyclomine 10 mg capsule 10 mg PO TID IBS #90 caps 06/27/22 11/27/22 Rx omeprazole 20 mg capsule,delayed 20 mg PO BID #60 caps 07/09/22 11/27/22 Rx release paroxetine HCl 40 mg tablet 20 mg PO QDAY 08/28/22 11/27/22 History zolpidem 10 mg tablet 10 mg PO HS 08/28/22 11/27/22 History spironolactone 25 mg tablet 25 mg PO BID 10/01/22 11/27/22 History docusate sodium 100 mg capsule 100 mg PO QDAY #7 caps 10/04/22 11/27/22 Rx (Dulcolax Stool Softener (docusate)) acyclovir 400 mg tablet 400 mg PO QDAY PRN Break out #60 10/08/22 11/27/22 Rx tabs ondansetron HCl 4 mg tablet 4 mg PO Q4-6HP PRN break out #14 10/08/22 11/27/22 Rx tabs magnesium citrate 100 mg tablet 100 mg PO QDAY #5 tabs 10/27/22 11/27/22 Rx tizanidine 4 mg tablet (Zanaflex) 4 mg PO QID #120 tabs 11/10/22 11/27/22 Rx hydrocodone 10 mg-acetaminophen 1 tab PO Q4H PRN pain #180 tabs 11/24/22 11/27/22 Rx 325 mg tablet lorazepam 1 mg tablet 1 mg PO PRN 11/24/22 11/27/22 History naloxone 4 mg/actuation nasal 4 mg intranasal Q2M PRN opioid 11/24/22 11/27/22 Rx spray (Narcan) overdose #2 ea amoxicillin 875 mg-potassium 1 tab PO BID #20 tabs 12/02/22 Rx clavulanate 125 mg tablet fentanyl 50 mcg/hr transdermal 1 patch transdermal Q48H #15 12/04/22 Rx patch patches clonidine HCl 0.1 mg tablet 0.1 mg PO BID #60 tabs 12/15/22 Rx Allergies Allergy/AdvReac Type Severity Reaction Status Date / Time dichloralphenazone Allergy Mild Hives Verified 11/24/22 14:48 [From Midrin] Isometheptene [From Midrin] Allergy Mild Hives Verified 11/24/22 14:48 Sulfa (Sulfonamide Allergy Mild HIVES Verified 11/24/22 14:48 Antibiotics) [SULFA (SULFONAMIDE ANTIBIOTICS)] hydroxyzine Allergy Unknown unknown Verified 11/24/22 14:48 chlorpromazine AdvReac Intermediate Palpitation Verified 11/24/22 14:48 [From Thorazine] s diphenhydramine AdvReac Intermediate CRAWL OUT Verified 11/24/22 14:48 OF SKIN promethazine [From PHENERGAN] AdvReac Intermediate CRAWL OUT Verified 11/24/22 14:48 OF SKIN sumatriptan [From IMITREX] AdvReac Intermediate CRAWL OUT Verified 11/24/22 14:48 OF SKIN haloperidol [From Haldol] AdvReac Mild involuntary Verified 11/24/22 14:48 muscle movements quetiapine [From Seroquel] AdvReac Mild Vomiting Verified 11/24/22 14:48 sulfa Allergy Mild Rash Uncoded 11/24/22 14:48 Physical Examination Vital Signs Vital signs: Temp Pulse Resp BP Pulse Ox O2 Del Method 98.3 F 78 16 184/115 100 Room Air 12/16/22 13:45 12/17/22 15:17 12/17/22 15:17 12/17/22 15:17 12/17/22 15:17 12/16/22 13:45 General physical appearance General physical exam: well developed, moderate distress, severe pain and chronically ill Eyes Eye exam: PERRL and normal ocular movement ENT ENT exam: normal mucosa and other (Multiple piercings in both ears) Head Head exam IM: Present atraumatic, normal inspection and normocephalic Neck Neck exam: no masses, no bruits, trachea midline, no lymphadenopathy and no venous distension Cardiovascular Cardiovascular exam IM: Present normal rate and rhythm, RRR, +S1 and +S2; Absent gallop or JVD Respiratory Respiratory exam: normal expansion, normal respiratory effort and clear to auscultation Abdomen Abdomen: Present tender (Diffusely tender abdomen), bowel sounds (Hypoactive bowel sounds), surgical scars (Well-healed surgical scars), guarding and distended Integumentary Integumentary: Present no rash, no growths and no abnormal pigmentation Neurologic Neurologic: Present normal coordination and normal sensation Musculoskeletal Musculoskeletal: Present normal gait and normal posture Psychiatric Psychiatric: Present oriented to time, oriented to person, oriented to place, speech is normal and memory intact Results Labs 12/16/22 13:50 12/17/22 07:36 Labs: Abnormal lab results 12/16/22 12/16/22 12/16/22 Range/Units 13:50 13:50 23:30 WBC 11.6 H (4.5-11.0) K/mcL RBC 5.48 H (3.59-5.38) M/mcL Hgb 16.2 H (11.2-15.7) g/dL Hct 49.1 H (34.1-44.9) % Plt Count 517 H (140-440) K/mcL Absolute Neutrophils 8.74 H (1.80-8.00) K/mcL D-Dimer < 0.27 L (0.27-0.5) ug/mL AST 38 H (<32) U/L ALT 72 H (<40) U/L Alkaline Phosphatase 224 H (39-117) U/L 12/17/22 Range/Units 07:36 WBC (4.5-11.0) K/mcL RBC (3.59-5.38) M/mcL Hgb (11.2-15.7) g/dL Hct (34.1-44.9) % Plt Count (140-440) K/mcL Absolute Neutrophils (1.80-8.00) K/mcL D-Dimer (0.27-0.5) ug/mL AST 101 H (<32) U/L ALT 108 H (<40) U/L Alkaline Phosphatase 215 H (39-117) U/L Diabetes panel 12/16/22 12/17/22 Range/Units 13:50 07:36 Sodium 141 (133-145) mmol/L Potassium 3.8 (3.3-5.1) mmol/L Chloride 106 (96-108) mmol/L Carbon Dioxide 25 (22-30) mmol/L BUN 9 (6-20) mg/dL Creatinine 0.7 (0.6-1.1) mg/dL Glucose 99 (70-105) mg/dL Calcium 8.9 (8.6-10.4) mg/dL AST 38 H 101 H (<32) U/L ALT 72 H 108 H (<40) U/L Alkaline Phosphatase 224 H 215 H (39-117) U/L Total Protein 8.2 7.0 (5.9-8.4) gm/dL Albumin 4.5 3.9 (3.2-5.2) gm/dL Calcium panel 12/16/22 12/17/22 Range/Units 13:50 07:36 Calcium 8.9 (8.6-10.4) mg/dL Albumin 4.5 3.9 (3.2-5.2) gm/dL Pituitary panel 12/17/22 Range/Units 07:36 Sodium 141 (133-145) mmol/L Potassium 3.8 (3.3-5.1) mmol/L Chloride 106 (96-108) mmol/L Carbon Dioxide 25 (22-30) mmol/L BUN 9 (6-20) mg/dL Creatinine 0.7 (0.6-1.1) mg/dL Glucose 99 (70-105) mg/dL Calcium 8.9 (8.6-10.4) mg/dL Adrenal panel 12/16/22 12/17/22 Range/Units 13:50 07:36 Sodium 141 (133-145) mmol/L Potassium 3.8 (3.3-5.1) mmol/L Chloride 106 (96-108) mmol/L Carbon Dioxide 25 (22-30) mmol/L BUN 9 (6-20) mg/dL Creatinine 0.7 (0.6-1.1) mg/dL Glucose 99 (70-105) mg/dL Calcium 8.9 (8.6-10.4) mg/dL Total Bilirubin 0.4 0.6 (0.1-1.0) mg/dL AST 38 H 101 H (<32) U/L ALT 72 H 108 H (<40) U/L Alkaline Phosphatase 224 H 215 H (39-117) U/L Total Protein 8.2 7.0 (5.9-8.4) gm/dL Albumin 4.5 3.9 (3.2-5.2) gm/dL All other labs normal. A/P Assessment and plan (1) Nausea and vomiting: Status: Acute (2) Chronic generalized abdominal pain: Status: Acute (3) Constipation due to opioid therapy: Status: Acute (4) Irritable bowel syndrome: Status: Acute (5) CRPS (complex regional pain syndrome type I): Status: Chronic Comment: Left lower limb (6) Degenerative disc disease: Status: Chronic Qualifiers: Spinal region: high cervical Qualified Code(s): M50.31 - Other cervical disc degeneration, high cervical region (7) Obstructive sleep apnea: Status: Chronic (8) Encounter for long-term use of opiate analgesic: Status: Chronic Plan relistor daily to block effective narcotics on bowel Reglan 5 mg IV every 6 hours Ativan 1 mg IV every 6 hours Resume home medications IV antiemetics as needed Scheduled for EGD on Thursday Time Spent With Patient Time: Total time spent is greater than 50% in coordination of care (as documented) at patient's floor/unit and/or counseling patient:
[2022-12-17] MEDS ORDERED: fentaNYL 50 MCG PATCH TOPICAL SCH (15:45)
[2022-12-17] MEDS: PROMETHAZINE 25 MG/ML VIAL IV PRN (16:13)
[2022-12-17] MEDS: DICYCLOMINE 20 MG TABLET PO SCH ×2 (18:34→22:01)
[2022-12-17] MEDS: tiZANidine 4 MG TABLET PO SCH ×2 (18:34→22:01)
[2022-12-17] MEDS: PANTOPRAZOLE 40 MG VIAL IV SCH (18:35)
[2022-12-17] MEDS: METHYLNALTREXONE BROMIDE 12 MG/0.6 ML SYRINGE SQ SCH (18:35)
[2022-12-17] MEDS: ONDANSETRON 4 MG/2 ML VIAL IV PRN (18:53)
[2022-12-17] MEDS: HYDROmorphone 1 MG/ML SYRINGE IV PRN (18:53)
[2022-12-17] MEDS: PARoxetine 20 MG TABLET PO SCH (22:01)
[2022-12-17] MEDS: ZOLPIDEM 5 MG TABLET PO PRN (22:01)
[2022-12-17] MEDS: cloNIDine HCL 0.1 MG TABLET PO SCH (22:20)
[2022-12-18] MEDS: LORazepam 2 MG/ML VIAL IV SCH ×4 (03:18→19:44)
[2022-12-18] MEDS: HYDROmorphone 1 MG/ML SYRINGE IV PRN ×6 (03:30→23:27)
--- NOTE | 2022-12-18 06:51 | EKG ---
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
[2022-12-18] MEDS: PANTOPRAZOLE 40 MG VIAL IV SCH ×2 (07:46→18:06)
[2022-12-18] MEDS: DICYCLOMINE 20 MG TABLET PO SCH ×4 (08:56→20:52)
[2022-12-18] MEDS: tiZANidine 4 MG TABLET PO SCH ×3 (08:56→20:52)
[2022-12-18] MEDS: ONDANSETRON 4 MG/2 ML VIAL IV PRN (08:56)
[2022-12-18] MEDS: cloNIDine HCL 0.1 MG TABLET PO SCH ×2 (08:57→19:44)
[2022-12-18] MEDS ORDERED: METHYLNALTREXONE BROMIDE 12 MG/0.6 ML SYRINGE SQ SCH (09:00)
[2022-12-18] MEDS: METHYLNALTREXONE BROMIDE 12 MG/0.6 ML SYRINGE SQ SCH ×2 (09:02→18:07)
[2022-12-18] MEDS ORDERED: FLU VACC QS2022-23(6MOS UP)/PF 60 MCG/0.5 ML SYRINGE IM ONE (10:00)
--- NOTE | 2022-12-18 11:39 | General Surgery Progress Note ---
SUBJECTIVE Subjective Patient information: Note initiated : 12/18/22 at 11:34 am Service Date, if different from initiated Date: [] Patient: Allison Ji 52 y/o F admitted on 12/17/22 for vomiting. Chief Complaint: [] Principal diagnosis: Recurrent nausea and vomiting Interval history: Patient is progressing nicely. She has not had any nausea or vomiting since admission. She has had multiple bowel movements since starting Relistor and metoclopramide. She has not had any extrapYRAMIDAL muscle activity with medical. She states that she slept well and her pain is improved. Constitutional Vitals: Vital Signs Temp Pulse Resp BP Pulse Ox O2 Del Method 98.2 F 90 16 101/70 98 Room Air 12/18/22 08:00 12/18/22 08:00 12/18/22 08:00 12/18/22 08:00 12/18/22 08:00 12/18/22 08:00 Period Temp Pulse Resp BP Sys/Cui Pulse Ox O2 Del Method O2 Flow Rate Last 24 Hr 97.1 F-98.9 F 50-90 12-20 80-184/50-122 93-100 Room Air-Room Air Intake and Output 12/17/22 12/18/22 12/18/22 19:59 03:59 11:59 Intake Total 0 Output Total 0 Balance 0 Weight 208 lb 6.4 oz Intake & Output: Intake & Output 12/17/22 12/18/22 12/18/22 19:59 03:59 11:59 Intake Total 0 Output Total 0 Balance 0 Weight 208 lb 6.4 oz Intake: Oral 0 Output: Void Amount 0 Other: Stool Consistency Liquid Loose # Voids 0 # Bowel Movements 3 ENT ENT exam: Present mucous membranes moist and normal oropharynx Neck Neck exam: Present normal inspection; Absent tenderness Respiratory Respiratory exam: Present normal respiratory exam and CTAB Cardiovascular Cardiovascular exam: Present normal rate and rhythm, RRR, +S1 and +S2; Absent JVD GI/Abdominal GI/Abdominal exam: Present normal bowel sounds, soft, distended and tenderness (Mild diffuse abdominal wall tenderness) Extremities Exam Extremities exam: Present normal inspection and neurovascular intact Neurological Exam Neurological exam: Present alert and oriented X3; Absent motor sensory deficit Psychiatric Psychiatric exam: Present anxious, depressed and normal affect A/P Assessment and plan (1) Chronic generalized abdominal pain: Status: Acute (2) Nausea and vomiting: Status: Acute (3) Constipation due to opioid therapy: Status: Acute (4) Irritable bowel syndrome: Status: Acute Plan Continue Relistor daily Continue metoclopramide daily Scheduled for upper endoscopy tomorrow Time Spent With Patient Time: Total time spent is greater than 50% in coordination of care (as documented) at patient's floor/unit and/or counseling patient:
[2022-12-18] MEDS: Febuxostat [Uloric] 80 mg Tab PO SCH (19:45)
[2022-12-18] MEDS: PARoxetine 20 MG TABLET PO SCH (20:52)
[2022-12-18] MEDS: ZOLPIDEM 5 MG TABLET PO PRN (20:52)
[2022-12-19] MEDS: HYDROmorphone 1 MG/ML SYRINGE IV PRN ×9 (02:29→23:09)
[2022-12-19] MEDS: LORazepam 2 MG/ML VIAL IV SCH ×4 (02:29→20:06)
[2022-12-19] MEDS: PROMETHAZINE 25 MG/ML VIAL IV PRN ×3 (04:22→17:06)
[2022-12-19] MEDS: PANTOPRAZOLE 40 MG VIAL IV SCH ×2 (07:07→16:50)
[2022-12-19 07:48] LABS: Basophils # (Auto) 0.05 K/mcL (0.00-0.30); Basophils % (Auto) 0.8 % (0.0-2.0); Eosinophils % (Auto) 4.5 % (0.0-7.0); Hematocrit 38.6 % (34.1-44.9); Hemoglobin 12.2 g/dL (11.2-15.7); Lymphocytes # (Auto) 2.35 K/mcL (1.50-4.80); Lymphocytes % (Auto) 35.5 % (15.5-49.0); Mean Cell Volume 91.7 fL (80.0-100.0); Mean Corpuscular HGB Conc 31.6 g/dL (31.0-36.0); Mean Platelet Volume 10.7 fL (8.8-12.5); Monocytes # (Auto) 0.41 K/mcL (0.10-0.90); Monocytes % (Auto) 6.2 % (1.0-12.0); Neutrophils % (Auto) 52.7 % (38.0-78.0); Platelet Count 328 K/mcL (140-440); RBC 4.21 M/mcL (3.59-5.38); Red Cell Distribution Width 12.4 % (11.5-14.5); WBC 6.6 K/mcL (4.5-11.0)
[2022-12-19 08:32] LABS: ALT/SGPT 59 U/L (<40); AST/SGOT 26 U/L (<32); Albumin 3.8 gm/dL (3.2-5.2); Albumin/Globulin Ratio 1.4 (1.0-2.3); Alkaline Phosphatase 168 U/L (39-117); Bilirubin,Direct < 0.2 mg/dL (0-0.3); Bilirubin,Total 0.4 mg/dL (0.1-1.0); Blood Urea Nitrogen 8 mg/dL (6-20); Calcium 9.2 mg/dL (8.6-10.4); Carbon Dioxide 29 mmol/L (22-30); Chloride 103 mmol/L (96-108); Globulin 2.7 gm/dL (2.2-3.7); Glomerular Filtration Rate 84; Glucose 80 mg/dL (70-105); Lactate Dehydrogenase 93 U/L (135-225); Phosphorous 3.6 mg/dL (2.5-4.5); Triglycerides 143 mg/dL (<150)
[2022-12-19] MEDS: DICYCLOMINE 20 MG TABLET PO SCH ×4 (09:10→20:24)
[2022-12-19] MEDS: cloNIDine HCL 0.1 MG TABLET PO SCH ×3 (09:10→20:24)
[2022-12-19] MEDS: tiZANidine 4 MG TABLET PO SCH ×3 (09:10→20:24)
--- NOTE | 2022-12-19 10:30 | XRay Report ---
CLINICAL INFORMATION: FOR F/U OF ILEUS COMPARISON: 10/27/2022. FINDINGS: The stool gas pattern is unremarkable. There is no free air, soft tissue mass, organomegaly or pathologic calcification. IMPRESSION: Normal abdomen Interpreted and Authenticated by: Mateo Capellan 12/19/22
[2022-12-19] MEDS ORDERED: LIDOCAINE HCL/PF 100 MG/5 ML SYRINGE IV ONE (12:15)
[2022-12-19] MEDS ORDERED: KETAMINE 50 MG/ML Syringe (ANEST) IV ONE (12:15)
[2022-12-19] MEDS ORDERED: ONDANSETRON 4 MG/2 ML VIAL ONE (12:15)
[2022-12-19] MEDS ORDERED: PROPOFOL 200 MG/20 ML VIAL IV ONE (12:15)
[2022-12-19] MEDS ORDERED: GLYCOPYRROLATE 0.2 MG/ML VIAL IV ONE (12:15)
[2022-12-19] MEDS ORDERED: MIDAZOLAM 5 MG/5 ML VIAL ONE (12:15)
--- NOTE | 2022-12-19 12:34 | Brief Operative Note ---
Brief Operative Note Date of procedure: 12/19/22 Pre-op diagnosis: intractable nausea and vomiting Post-op diagnosis: other (intractable nausea and vomiting) Procedure: esophagogastroduodenoscopy Grafts/Implants: No Anesthesia: MAC Findings: normal esophagus ,stomach and duodenum Complications: none Surgeon: Albertina Cunningham Estimated blood loss (cc): 0 Specimens Removed/Pathology: none sent Condition: stable Disposition: floor
[2022-12-19] MEDS: METHYLNALTREXONE BROMIDE 12 MG/0.6 ML SYRINGE SQ SCH (18:11)
[2022-12-19] MEDS: Febuxostat [Uloric] 80 mg Tab PO SCH (20:24)
[2022-12-19] MEDS: PARoxetine 20 MG TABLET PO SCH (20:24)
[2022-12-19] MEDS: ZOLPIDEM 5 MG TABLET PO PRN (23:08)
[2022-12-20] MEDS: HYDROmorphone 1 MG/ML SYRINGE IV PRN ×3 (02:56→08:49)
[2022-12-20] MEDS: LORazepam 2 MG/ML VIAL IV SCH ×3 (02:56→08:49)
[2022-12-20] MEDS: PROMETHAZINE 25 MG/ML VIAL IV PRN ×3 (04:04→13:41)
[2022-12-20 06:34] LABS: Basophils # (Auto) 0.05 K/mcL (0.00-0.30); Basophils % (Auto) 0.8 % (0.0-2.0); Eosinophils # (Auto) 0.34 K/mcL (0.00-0.70); Eosinophils % (Auto) 5.2 % (0.0-7.0); Hematocrit 35.1 % (34.1-44.9); Hemoglobin 11.5 g/dL (11.2-15.7); Lymphocytes % (Auto) 33.3 % (15.5-49.0); Mean Cell Volume 90.9 fL (80.0-100.0); Mean Corpuscular HGB Conc 32.8 g/dL (31.0-36.0); Mean Platelet Volume 10.4 fL (8.8-12.5); Monocytes % (Auto) 7.6 % (1.0-12.0); Neutrophils % (Auto) 52.8 % (38.0-78.0); Platelet Count 311 K/mcL (140-440); RBC 3.86 M/mcL (3.59-5.38); Red Cell Distribution Width 12.3 % (11.5-14.5); WBC 6.6 K/mcL (4.5-11.0)
[2022-12-20 07:26] LABS: ALT/SGPT 35 U/L (<40); AST/SGOT 15 U/L (<32); Albumin 3.4 gm/dL (3.2-5.2); Albumin/Globulin Ratio 1.5 (1.0-2.3); Alkaline Phosphatase 136 U/L (39-117); Bilirubin,Direct < 0.2 mg/dL (0-0.3); Bilirubin,Total 0.2 mg/dL (0.1-1.0); Blood Urea Nitrogen 7 mg/dL (6-20); Calcium 8.1 mg/dL (8.6-10.4); Carbon Dioxide 29 mmol/L (22-30); Chloride 106 mmol/L (96-108); Globulin 2.3 gm/dL (2.2-3.7); Glomerular Filtration Rate 84; Glucose 104 mg/dL (70-105); Lactate Dehydrogenase 92 U/L (135-225); Phosphorous 4.2 mg/dL (2.5-4.5); Triglycerides 139 mg/dL (<150); Uric Acid 4.6 mg/dL (2.5-8.0)
[2022-12-20] MEDS: DICYCLOMINE 20 MG TABLET PO SCH ×2 (08:48→13:41)
[2022-12-20] MEDS: tiZANidine 4 MG TABLET PO SCH (08:48)
[2022-12-20] MEDS: cloNIDine HCL 0.1 MG TABLET PO SCH (08:48)
[2022-12-20] MEDS: PANTOPRAZOLE 40 MG VIAL IV SCH (08:49)
--- NOTE | 2022-12-20 11:33 | Discharge Summary ---
Discharge Provider Provider IMPORTANT FOLLOW-UP INFORMATION FOR PCP: Patient information: Note initiated : 12/20/22 at 11:19 am Service Date, if different from initiated Date: [] Patient: Allison Ji 52 y/o F admitted on 12/17/22 for Esophagogastroduodenoscopy. Chief Complaint: [] Date of admission: 12/17/22 16:33 Discharge date: 12/20/22 Primary care physician: Tong Ames MD Admitting clinician: Albertina Cunningham Attending physician on admission: Albertina Cunningham Consults: 12/16/22 Consult to Physician [CONS] Stat Comment: Consulting Provider: Albertina Cunningham Reason For Exam: Physician to Consult Attending physician on discharge: Albertina Cunningham Discharging clinician: Albertina Cunningham COURSE Hospital Course Hospital course: 52-year-old female admitted for treatment of intractable nausea vomiting and abdominal pain. She has greater than 48-hour history of nausea vomiting which was associated with lower abdominal pain. She states that she has had chronic abdominal pain for many years. She was treated in the emergency room on the day prior to admission and the night prior to admission. X-ray showed the major portion of the stomach filled with food debris and she had increased fecal burden of her colon. The patient has a long history of narcotic use and has b een on chronic high-dose narcotics for over 20 Years. She was admitted and treated symptomatically with IV fluids, antiemetics and Relistor. She had chronic evacuation of her colon and her nausea improved. Upper endoscopy was performed on yesterday and this showed that her stomach was empty without any inflammatory changes. The continues to do well and her fecal burden has evacuated. Patient is stable for discharge home. It is felt that she would benefit from metoclopramide but she refuses to take it., Discharge diagnosis: Severe gastric stasis narcotic-induced Secondary discharge diagnosis: narcotic induced constipation Chronic generalized abdominal pain Irritable bowel syndrome Complex regional pain syndrome Degenerative disc disease Obstructive sleep apnea Long-term use of opiate analgesics Reason for admission: Intractable nausea and vomiting Procedures: Esophagogastroduodenoscopy 19 December 2022 Pertinent studies/significant findings: None Complications: None Time Spent with Patient Time attestation: Total time spent providing and/or coordinating discharge services: Time spent: Less than 30 minutes Physical Examination Vital Signs Vital signs: Temp Pulse Resp BP Pulse Ox O2 Del Method O2 Flow Rate 97.9 F 60 14 125/69 93 Room Air 6 12/20/22 08:00 12/20/22 08:00 12/20/22 08:00 12/20/22 08:00 12/20/22 08:00 12/20/22 08:00 12/19/22 12:30 Eyes Eye exam: PERRL and normal ocular movement ENT ENT exam: normal mucosa Head Head exam IM: Present atraumatic, normal inspection and normocephalic Neck Neck exam: no masses, no bruits, trachea midline, no lymphadenopathy and no venous distension Cardiovascular Cardiovascular exam IM: Present normal rate and rhythm, RRR, +S1 and +S2; Absent JVD Respiratory Respiratory exam: normal expansion, normal respiratory effort and clear to aus cultation Abdomen Abdomen: Present tender (Mild diffuse tenderness) and bowel sounds (Normal active bowel sounds) Integumentary Integumentary: Present no rash, no growths and no abnormal pigmentation Neurologic Neurologic: Present normal coordination and normal sensation Musculoskeletal Musculoskeletal: Present normal gait and normal posture Psychiatric Psychiatric: Present oriented to time, oriented to person, oriented to place, speech is normal and memory intact Discharge Plan Patient/Caregiver Discharge Instructions Activity: increase activity as tolerated Diet: Regular Diet Prescriptions: New pantoprazole 40 mg tablet,delayed release (DR/EC) 40 mg PO BIDAC Qty: 60 3RF promethazine 25 mg tablet 25 mg PO Q4H PRN (Reason: Nausea) Qty: 60 2RF Continued febuxostat [Uloric] 80 mg tablet 80 mg PO QDAY Qty: 90 4RF Rx Instructions: 1 po qday acyclovir 400 mg tablet 400 mg PO QDAY PRN (Reason: Break out ) Qty: 60 4RF Rx Instructions: 1 po BID ondansetron HCl 4 mg tablet 4 mg PO Q4-6HP PRN (Reason: break out) Qty: 14 3RF tizanidine [Zanaflex] 4 mg tablet 4 mg PO QID MDD 4 Qty: 120 2RF Narcan 4 mg/actuation spray,non-aerosol 4 mg INTRANASAL Q2M PRN (Reason: opioid overdose) Qty: 2 0RF Rx Instructions: Administer in nostril in the event of suspected overdose and call EMS fentanyl 50 mcg/hr patch 72 hour 1 patch TRANSDERMA Q48H Qty: 15 0RF Rx Instructions: *MUST LAST 30 DAYS* P/U 01/31, Start 02/01 clonidine HCl 0.1 mg tablet 0.1 mg PO BID Qty: 60 0RF lorazepam 1 mg tablet 1 mg PO QID Rx Instructions: 1 po QID zolpidem 10 mg tablet 10 mg PO HS paroxetine HCl 40 mg tablet 20 mg PO QDAY lorazepam 1 mg tablet 1 mg PO DAILYP MDD 1 mg PRN (Reason: Panic Attack(S)) hydrocodone-acetaminophen 10-325 mg tablet 1 tab PO Q4H MDD 6 PRN (Reason: pain) Qty: 180 0RF Rx Instructions: *MUST LAST 30 DAYS* P/U 01/31, Start 02/01 dicyclomine 10 mg capsule 10 mg PO TID Qty: 90 0RF magnesium citrate 100 mg tablet 100 mg PO QDAY Qty: 5 0RF spironolactone 25 mg tablet 25 mg PO BID Rx Instructions: TAKE 1 TABLET BY MOUTH TWICE DAILY docusate sodium [Dulcolax Stool Softener (dss)] 100 mg capsule 100 mg PO QDAY Qty: 7 0RF amoxicillin-pot clavulanate 875-125 mg tablet 1 tab PO BID Qty: 20 0RF No Action omeprazole 20 mg capsule,delayed release(DR/EC) 20 mg PO BID Qty: 60 6RF Rx Instructions: swallow whole (do not chew/crush/cut) OR open capsule, sprinkle contents over tablespoonful applesauce; swallow all immediately/do not chew pellets Prescription drug monitoring program results: PDMP reviewed and no issues identified Follow Up Plan Follow up with: Tong Ames MD [Primary Care Provider] - Patient Disposition: Home, Self-Care Prognosis: Good Rehab Potential: Good I certify that the patient requires SNF services: No Overall status at discharge: patient is back to baseline Discharge Orders: Discharge Order (Routine); Ordered 12/20/22 Ordered By: Albertina Cunningham Pending Pending Pending: Resuscitation Status Resuscitate (Full Code) Diet Regular Diet Start ThuDec 19 1236 Clonidine HCl (Clonidine Hcl 0.1 Mg Tablet) 0.1 mg PO BID [facility] Last Admin: 12/20/22 08:48 Dose: 0.1 mg Documented By: Admin: 12/19/22 20:24 Dose: 0.1 mg Documented By: Admin: 12/19/22 13:47 Dose: 0.1 mg Documented By: Admin: 12/18/22 19:44 Dose: 0.1 mg Documented By: Admin: 12/18/22 08:57 Dose: Not Given Documented By: Admin: 12/17/22 22:20 Dose: Not Given Documented By: LUIS Dicyclomine HCl (Dicyclomine 20 Mg Tablet) 20 mg PO QID [facility] Last Admin: 12/20/22 08:48 Dose: 20 mg Documented By: Admin: 12/19/22 20:24 Dose: 20 mg Documented By: Admin: 12/19/22 16:50 Dose: 20 mg Documented By: Admin: 12/19/22 13:04 Dose: 20 mg Documented By: Admin: 12/19/22 09:10 Dose: Not Given Documented By: Admin: 12/18/22 20:52 Dose: 20 mg Documented By: Admin: 12/18/22 18:06 Dose: 20 mg Documented By: Admin: 12/18/22 12:48 Dose: 20 mg Documented By: Admin: 12/18/22 08:56 Dose: 20 mg Documented By: Admin: 12/17/22 22:01 Dose: 20 mg Documented By: Admin: 12/17/22 18:34 Dose: 20 mg Documented By: LINDSEY Fentanyl (Fentanyl 50 Mcg Patch) 50 mcg TOPICAL Q72H [facility] Admin: 12/17/22 18:36 Dose: 50 mcg Documented By: LINDSEY Hydromorphone HCl (Hydromorphone 1 Mg/Ml Syringe) 1 mg IV Q2HP PRN; Protocol PRN Reason: Per Pain Protocol Last Admin: 12/20/22 08:49 Dose: 1 mg Documented By: Admin: 12/20/22 03:51 Dose: 1 mg Documented By: Admin: 12/19/22 23:09 Dose: 1 mg Documented By: Admin: 12/19/22 20:06 Dose: 1 mg Documented By: Admin: 12/19/22 16:51 Dose: 1 mg Documented By: Admin: 12/19/22 13:48 Dose: 1 mg Documented By: [email or web address] Admin: 12/19/22 11:59 Dose: 1 mg Documented By: [email or web address] Admin: 12/19/22 09:08 Dose: 1 mg Documented By: [email or web address] Admin: 12/19/22 07:05 Dose: 1 mg Documented By: [email or web address] Admin: 12/19/22 04:22 Dose: 1 mg Documented By: Admin: 12/19/22 02:29 Dose: 1 mg Documented By: Admin: 12/18/22 23:27 Dose: 1 mg Documented By: Admin: 12/18/22 20:52 Dose: 1 mg Documented [facility]: [facility] Admin: 12/18/22 18:06 Dose: 1 mg Documented By: Admin: 12/18/22 12:49 Dose: 1 mg Documented By: Admin: 12/18/22 07:46 Dose: 1 mg Documented By: Admin: 12/18/22 03:30 Dose: 1 mg Documented By: Admin: 12/17/22 18:53 Dose: 1 mg Documented By: LINDSEY Lorazepam (Lorazepam 2 Mg/Ml Vial) 1 mg IV Q6H [facility] Admin: 12/20/22 08:49 Dose: 1 mg Documented By: Admin: 12/20/22 03:50 Dose: 1 mg Documented By: [facility] Admin: 12/19/22 20:06 Dose: 1 mg Documented By: [facility] Admin: 12/19/22 15:23 Dose: 1 mg Documented By: Admin: 12/19/22 08:44 Dose: 1 mg Documented By: Admin: 12/19/22 02:29 Dose: 1 mg Documented By: Admin: 12/18/22 19:44 Dose: 1 mg Documented By: [facility] Admin: 12/18/22 14:36 Dose: 1 mg Documented By: Admin: 12/18/22 08:56 Dose: 1 mg Documented By: Admin: 12/18/22 03:18 Dose: 1 mg Documented By: Admin: 12/17/22 22:21 Dose: 1 mg Documented By: Admin: 12/17/22 15:15 Dose: 1 mg Documented By: ZACKERY Methylnaltrexone [place] (Methylnaltrexone [place] 12 Mg/0.6 Ml Syringe) 12 mg SQ DAILY@1800 [facility] Stop: 12/20/22 18:01 Last Admin: 12/19/22 18:11 Dose: 12 mg Documented By: Admin: 12/18/22 18:07 Dose: 12 mg Documented By: LINDSEY Ondansetron HCl (Ondansetron 4 Mg/2 Ml Vial) 4 mg IV Q4HP PRN PRN Reason: Nausea And Vomiting Last Admin: 12/18/22 08:56 Dose: 4 mg Documented By: Admin: 12/17/22 18:53 Dose: 4 mg Documented By: LINDSEY Pantoprazole Sodium (Pantoprazole 40 Mg Vial) [facility] Last Admin: 12/20/22 08:49 Dose: 40 mg Documented By: Admin: 12/19/22 16:50 Dose: 40 mg Documented By: Admin: 12/19/22 07:07 Dose: 40 mg Documented By: Admin: 12/18/22 18:06 Dose: 40 mg Documented By: Admin: 12/18/22 07:46 Dose: 40 mg Documented By: Admin: 12/17/22 18:35 Dose: 40 mg Documented By: LINDSEY Paroxetine HCl (Paroxetine 20 Mg Tablet) 40 mg PO [facility] Last Admin: 12/19/22 20:24 Dose: 40 mg Documented By: Admin: 12/18/22 20:52 Dose: 40 mg Documented By: Admin: 12/17/22 22:01 Dose: 40 mg Documented By: LUIS Febuxostat [Uloric] (80 Mg Tab) 1 dose PO [facility] Last Admin: 12/19/22 20:24 Dose: 1 dose Documented By: Admin: 12/18/22 19:45 Dose: 1 dose Documented By: RUDY Promethazine HCl (Promethazine 25 Mg/Ml Vial) 25 mg IV Q4-6HP PRN PRN Reason: Nausea And Vomiting Last Admin: 12/20/22 08:48 Dose: 25 mg Documented By: Admin: 12/20/22 04:04 Dose: 25 mg Documented By: Admin: 12/19/22 17:06 Dose: 25 mg Documented By: Admin: 12/19/22 13:05 Dose: 25 mg Documented By: Admin: 12/19/22 04:22 Dose: 25 mg Documented By: Admin: 12/17/22 16:13 Dose: 25 mg Documented By: ZACKERY Scopolamine (Scopolamine 1 Patch Patch) 1 patch TOPICAL Q72H [facility] Last Admin: 12/17/22 18:53 Dose: Not Given Documented By: LINDSEY Tizanidine HCl (Tizanidine 4 Mg Tablet) 8 mg PO TID [facility] Last Admin: 12/20/22 08:48 Dose: 8 mg Documented By: Admin: 12/19/22 20:24 Dose: 8 mg Documented By: Admin: 12/19/22 15:21 Dose: 8 mg Documented By: Admin: 12/19/22 09:10 Dose: Not Given Documented By: Admin: 12/18/22 20:52 Dose: 8 mg Documented By: Admin: 12/18/22 14:36 Dose: 8 mg Documented By: Admin: 12/18/22 08:56 Dose: 8 mg Documented By: Admin: 12/17/22 22:01 Dose: 8 mg Documented By: Admin: 12/17/22 18:34 Dose: 8 mg Documented By: LINDSEY Zolpidem Tartrate (Zolpidem 5 Mg Tablet) 10 mg PO HSP PRN PRN Reason: Insomnia Last Admin: 12/19/22 23:08 Dose: 10 mg Documented By: Admin: 12/18/22 20:52 Dose: 10 mg Documented By: Admin: 12/17/22 22:01 Dose: 10 mg Documented By: LUIS Shift Summary 12/19/22 22:45 Shift Summary by Julianna Mccarty Primary Diagnosis: Recurrent N/V Registration Status: IP Date of Surgery (if applicable): EGD 12/19 Pertinent Medical Dx/Issue(s): Fibromyalgia, complex regional pain syndrome, gastritis, colitis, constipation, IBS, HTN, GUSTAVO, anxiety/depression Med management (antibiotics, diuretics, BP): Zanaflex, Dicyclomine, Ativan, Zofran, Scope patch Skin/Wound Care: Dry skin, red blotches to bilateral breasts RIVETER PNEUMATIC (from heating pad per pt) Vital Signs with Trends: HTN O2, liter flow/saturations: RA Pain management (acute vs. chronic): Dilaudid x3 Lab/Rad (abnormals, trends): Unremarkable Neuro/Mental Status: A&Ox4 Urinary Elimination Device: BR Urinary output greater than 30mL/hr? Yes Date of last BM: 12/18 Lines/Tubes: 22g RW Activity: Ad kev in room Discharge Plan (needs, disposition, etc): Home with spouse. Summary: Patient is A/O and pleasant. frequent pain management. Initialized on 12/19/22 22:45 - END OF NOTE
--- NOTE | 2022-12-24 11:22 | EGD Procedure Note ---
DATE OF PROCEDURE: 12/19/2022 PREOPERATIVE DIAGNOSES: Intractable nausea and vomiting. POSTOPERATIVE DIAGNOSES: Intractable nausea and vomiting. PROCEDURE: Esophagogastroduodenoscopy. SURGEON: Albertina Cunningham M.D. FINDINGS: No abnormality found. Normal esophagus, stomach, and duodenum. DESCRIPTION OF PROCEDURE: Under general anesthesia, the patient turned to the left lateral decubitus position. Time-out procedure was carried out as per protocol. Scope was introduced and maneuvered to the esophagus. Proximal, middle and distal aspects of the esophagus were normal. GE junction was normal. The gastric fundus, body and antrum were normal. Pylorus was normal. There was no inflammation. First, second and third portions of the duodenum were normal. Scope was pulled back and retroflex view was done. No abnormality was noted. Air was suctioned from the stomach and the scope was removed. The patient tolerated the procedure well. She was awakened and monitored in the endoscopy suite prior to being returned to the floor. LCS:sher Job ID: [id number] Doc ID: [id number] Albertina Cunningham M.D.
== END 2022-12-20 14:00 | disposition home or self-care (01) ==
LOC: ED 13:20 → MEDSUR 13:20
PROVIDERS: ADMIT Family Medicine Adult Medicine; ATTEND Family Medicine Adult Medicine